=== PATIENT | female | born 1985 | race Caucasian/White ===

== ENCOUNTER → 2019-05-10 08:43 | Outpatient (CLI) | payer OTHER, SELFPAY ==
[2019-05-10 10:00] LABS: Alanine Aminotransferase 16 IU/L (9-52); Albumin 4.1 g/dL (3.5-5.0); Albumin Globulin Ratio 1.5 (1.0-2.8); Alkaline Phosphatase 60 U/L (38-126); Aspartate Aminotransferase 19 IU/L (14-36); BUN Creatinine Ratio 18.6 (6-22); Bilirubin Total 0.5 mg/dL (0.2-1.3); Blood Urea Nitrogen 13 mg/dL (7-17); Calcium 9.1 mg/dL (8.4-10.2); Carbon Dioxide 26 mmol/L (22-32); Chloride 106 mmol/L (98-107); Estimated Glomerular Filt Rate > 60.0 mL/min (>60); Globulin 2.7 g/dL (1.7-4.1); Glucose 95 mg/dL (70-100); HEMOLYSIS < 15 (0-50); Sodium 140 mmol/L (137-145); Total Protein 6.8 g/dL (6.3-8.2)
[2019-05-10 10:04] LABS: Potassium 4.1 mmol/L (3.4-5.1)
[2019-05-10 11:07] LABS: Thyroid Stimulating Hormone 1.12 uIU/mL (0.47-4.68)
[2019-05-16 03:42] LABS: Apolipoprotein B 81 mg/dL (<90); Cholesterol, Total 168 mg/dL (<200); HDL Cholesterol 48 mg/dL (>50); Lipoprotein (a) 187 nmol/L (<75); Non- HDL Cholesterol 120 (<130); Triglycerides 132 mg/dL (<150)
== END ==
PROVIDERS: PCP Physician Assistant; Visit Provider Physician Assistant
DX: R00.2 Palpitations (principal); Z13.220 Encounter for screening for lipoid disorders; Z13.6 Encounter for screening for cardiovascular disorders; Z82.49 Family history of ischemic heart disease and other diseases of the circulatory system
CPT/HCPCS: 36415; 80053; 83695; 84443

== ENCOUNTER 2020-02-21 08:52 | Emergency (ER) | payer OTHER, SELFPAY ==
[2020-02-21 09:05] VITALS: BP 141/91; PULSE 78; RESP 12; TEMP 37.1; O2SAT 98
[2020-02-21] MEDS: SUCRALFATE 1 GM/10 ML ORAL SUSP PO (09:54)
--- NOTE | 2020-02-21 10:16 | DI.US.S_ITS ---
PROCEDURE: US ABDOMEN LIMITED INDICATIONS: EPIGASTRIC AND RUQ TNDERNESS. EVALUATE FOR GALLSTONES TECHNIQUE: Real-time focused scanning was performed of the abdomen, with image documentation. COMPARISON: [facility], CR, XR CHEST 1V, 02/21/2020, 10:29. FINDINGS: No findings of gallstones or sludge are seen. The gallbladder wall is not thickened, measuring 3 mm or less. No specific pericholecystic fluid is seen. The sonographic Dunn sign is negative. There is no biliary dilatation, the common bile duct measures 5 mm. The liver is normal in size and demonstrates no focal lesions. No significant pancreatic abnormality is seen on these images. IMPRESSION: The gallbladder demonstrates a normal sonographic appearance. No biliary dilatation is seen. Dictated by: Nba Silveira M.D. on 02/21/2020 at 10:00 Approved by: Nba Silveira M.D. on 02/21/2020 at 10:01
--- NOTE | 2020-02-21 10:18 | DI.RAD.S_ITS ---
PROCEDURE: XR CHEST 1V INDICATIONS: central substernal burning pain TECHNIQUE: One view of the chest was acquired. COMPARISON: None. FINDINGS: Surgical changes and devices: None. Lungs and pleura: Lungs are clear. No pleural effusions or pneumothorax. Mediastinum: Mediastinal contours appear normal. Heart size is normal. Bones and chest wall: No suspicious bony lesions. Overlying soft tissues appear unremarkable. IMPRESSION: Portable chest within normal limits. Dictated by: Nba Silveira M.D. on 02/21/2020 at 9:42 Approved by: Nba Silveira M.D. on 02/21/2020 at 9:42
[2020-02-21 10:22] LABS: Add Manual Diff / Slide Review NO; Basophils Absolute Auto 0 /uL (0-100); Basophils Percent Auto 0.6 % (0-2); Eosinophils Absolute Auto 100 /uL (0-450); Eosinophils Percent Auto 0.9 % (2-4); Hematocrit 40.4 % (36-46); Hemoglobin 14.1 g/dL (12.0-16.0); Lymphocytes Absolute Auto 2000 /uL (1100-4500); Mean Corpuscular HGB Conc 34.8 % (30-36); Mean Corpuscular Hemoglobin 32.3 PG (26-34); Mean Corpuscular Volume 92.8 fL (80-100); Monocytes Absolute Auto 600 /uL (0-900); Monocytes Percent Auto 8.3 % (3-14); Neutrophils Absolute Auto 4000 /uL (1500-7000); Neutrophils Percent Auto 60.2 % (50-75); Platelet Count 189 X10^3/uL (150-400); Red Blood Cell Count 4.35 X10^6/uL (4.0-5.2); Red Cell Distribution Width 12.7 % (11.6-14.8); White Blood Cell Count 6.6 X10^3/uL (4.5-11.0)
[2020-02-21 10:35] LABS: Lipase 48 U/L (23-300)
[2020-02-21 10:37] LABS: Alanine Aminotransferase 14 IU/L (<35); Albumin 4.1 g/dL (3.5-5.0); Albumin Globulin Ratio 1.4 (1.0-2.8); Alkaline Phosphatase 61 U/L (38-126); Aspartate Aminotransferase 21 IU/L (14-36); BUN Creatinine Ratio 17.9 (6-22); Bilirubin Total 0.5 mg/dL (0.2-1.3); Blood Urea Nitrogen 12 mg/dL (7-17); Calcium 9.1 mg/dL (8.4-10.2); Carbon Dioxide 23 mmol/L (22-32); Chloride 108 mmol/L (98-107); Estimated Glomerular Filt Rate > 60.0 mL/min (>60); Globulin 2.9 g/dL (1.7-4.1); Glucose 100 mg/dL (70-100); HEMOLYSIS < 15 (0-50); Potassium 4.2 mmol/L (3.4-5.1); Sodium 139 mmol/L (137-145)
[2020-02-21] MEDS: PANTOPRAZOLE 20 MG TABLET 40 MG PO (10:41)
[2020-02-21] MEDS: MAG HYDROX/ALUMINUM/SIMETH SUS 20 ML, LIDOCAINE VISCOUS 2% 15 ML PO (10:42)
[2020-02-21 12:13] VITALS: BP 135/76; PULSE 69; RESP 17; O2SAT 97
--- NOTE | 2020-02-21 18:33 | ED_ITS ---
HPI - Abdominal Pain General Chief Complaint: Abdominal Pain Stated Complaint: Ulcer Time Seen by Provider: 02/21/20 09:34 Source: patient Mode of arrival: Ambulatory Limitations: no limitations History of Present Illness HPI narrative: CC: epigastric pain HPI: The patient is a 34-year-old female who initially presented with an acute panic attack which calmed down with breathing exercise. The patient's primary c oncern is that she developed epigastric and central substernal burning pain and discomfort. She complained of severe indigestion and heartburn and bubbles in her upper abdomen lower chest. She denies a history of ever being told that she had peptic ulcer disease or GERD. She has had trouble with indigestion and heartburn frequently since her last . Her last was in 2018. She denies a history of gastritis or pancreatitis or having her gallbladder removed. She states that her mother had gallstones in her gallbladder was removed. Her last menstrual period was in the 29 of January. She has been taking Tagamet Pepcid and Rolaids with partial relief from both of them but not completely from all of them. She states that she develops most of her pain and discomfort immediately after eating. She has been having increasing burping and belching and eructation. She admits to smoking cigarettes and smoking marijuana does not drink alcohol. She denies a history of pancreatitis diabetes mellitus hypertension and asthma. Related Data Previous Rx's Medication Instructions Recorded pantoprazole [Protonix] 40 mg PO DAILY #20 tab 02/21/20 sucralfate [Carafate] 10 ml PO QID PRN #420 ml 02/21/20 Allergies Allergy/AdvReac Type Severity Reaction Status Date / Time Penicillins Allergy Severe Anaphylaxis Verified 02/21/20 10:05 buspirone AdvReac Intermediate Nausea, Verified 02/21/20 09:49 shakey, dizziness, headaches, numbness in hands Review of Systems Review of Systems Narrative: REVIEW OF SYSTEMS: CONSTITUTIONAL: She denies any fever chills or sweats. NEUROLOGICAL: She has had intermittent mild headaches but no numbness tingling paresthesias anesthesia is paresis or paralysis. She has had no seizure disorder. EENT: She denies any loss of vision diplopia sore throat dysphagia. CARDIO-PULMONARY: She has had the burning substernal central chest pain without any radiation. She has had no significant shortness of breath cough palpi tations or dizziness. HEMOTOLOGICAL: She denies any bleeding abnormalities or bruising. GASTROINTESTINAL: She has had the abdominal pain as noted with nausea vomiting indigestion heartburn she denies any hematemesis coffee-ground emesis melena hematochezia. Bowel movements have been normal and she has had no diarrhea. GENITAL URINARY: She denies any urinary symptoms. MUSCULOSKELETAL/ RHEUMATOLOGICAL: She denies any significant back pain. Patient History Medical History Chicken pox (Resolved) History of live (Resolved ~11/12/17) Family History Mother History of heart attack History of heart disease Hyperlipidemia Hypertension Fatty liver Brother Anxiety History of bipolar disorder History of heart disease Hyperlipidemia Mental health problem Fatty liver Sister Anxiety Depression Mental health problem Grandfather Hwang's syndrome Grandmother Cancer Social History Smoking Status: Current every day smoker Tobacco: How many years used: 20 (off and on) quit status: considering quitting (that's one of the things I am here for today.) second hand exposure: Yes (my also smokes.) alcohol intake: former (I quit a year ago (as of 05/06/19). Before then it was very rare) substance use type: marijuana (I smoke and eat marijuana about 3 to 4 times a week.) Smoking Status: Current every day smoker alcohol intake frequency: 0-2 drinks per day Substance Use Type: does not use Exam Narrative Exam Narrative: PHYSICAL EXAM: CONSTITUTIONAL: Awake, Alert, Oriented, Coherent, Cooperative in NAD at the time that I am evaluating the patient HEAD: AT/NC EENT: PERRL, FROM of eyes, no discharge, no nystagmus MOUTH:Oral mucosa is moist and pink, posterior pharynx is without erythema or exudate. NECK: Supple, no obvious JVD, Trachea is midline without stridor, no palpable LN. SPINE: Palpationof the cervical, Thoracic, Lumbar or Sacral spine reveals no gross deformity or tenderness. No CVA tenderness. THORAX: No deformity, retractions, chest wall tenderness. LUNGS: Clear, symmetrical breath sounds without respiratory distress. HEART: Normal heart tones, regular rhythm and rate without murmur. ABDOMEN: Patient is tender in her epigastrium without guarding rebound or rigidity. She has mild tenderness in the right upper quadrant. LYMPHATIC: no palpable spleen. EXTREMITIES: No edema, deformity, tenderness . SKIN: No rash, bruising, petechiae or purpura. NEURO: Awake, alert, oriented, conversive, cranial nerves II-XII are symmetrical , moves all 4 extremities and is ambulatory. Initial Vital Signs Initial Vital Signs: Vital Signs Temperature 98.7 F 02/21/20 09:05 Pulse Rate 78 02/21/20 09:05 Respiratory Rate 12 02/21/20 09:05 Blood Pressure 141/91 H 02/21/20 09:05 Pulse Oximetry 98 02/21/20 09:05 Course Course Course Narrative: Patient was significantly improved after she was administered the Carafate, GI cocktail and pantoprazole. The patient was then discharged home. Her ultrasound of the gallbladder revealed no evidence of gallstones or acute cholecystitis. Chest x-ray revealed no cardiopulmonary pathology. Orders Ordered: ED Orders 02/21/20 10:02 Complete Blood Count AUTO DIFF Stat Comprehensive Metabolic Panel Stat Lipase Stat 02/21/20 10:16 US abdomen limited Stat 02/21/20 10:18 XR chest 1V Stat Discontinued Medications Al Hydrox/Mg Hydrox/Simethicone 20 ml/ Lidocaine HCl 15 ml 0 ml PO NOW ONE Stop: 02/21/20 09:36 Last Admin: 02/21/20 10:42 Dose: 35 ml Documented by: RSTONE Pantoprazole Sodium (Protonix) 40 mg PO NOW ONE Stop: 02/21/20 09:36 Last Admin: 02/21/20 10:41 Dose: 40 mg Documented by: YAHIRTONE Sucralfate (Carafate) 1 gm PO ACHS LATONIA Sucralfate (Carafate) 1 gm PO NOW ONE Stop: 02/21/20 09:44 Last Admin: 02/21/20 09:54 Dose: 1 gm Documented by: MANISHA Vital Signs Vital signs: Vital Signs - 8 hr 02/21/20 12:13 Pulse Rate 69 Respiratory Rate 17 Blood Pressure [Right Arm] 135/76 Pulse Oximetry 97 MDM - Abdominal Pain Medical Records Attestation: I reviewed the patient's medical records. Lab Data Attestation: I reviewed the patient's lab results. Result diagrams: 02/21/20 10:02 02/21/20 10:02 Labs: Lab Results 02/21/20 02/21/20 02/21/20 Range/Units 10:02 10:02 10:02 WBC 6.6 (4.5-11.0) X10^3/uL RBC 4.35 (4.0-5.2) X10^6/uL Hgb 14.1 (12.0-16.0) g/dL Hct 40.4 (36-46) % MCV 92.8 (80-100) fL MCH 32.3 (26-34) PG MCHC 34.8 (30-36) % RDW 12.7 (11.6-14.8) % Plt Count 189 (150-400) X10^3/uL Neut % (Auto) 60.2 (50-75) % Lymph % (Auto) 30.0 (25-40) % [place] % (Auto) 8.3 (3-14) % Eos % (Auto) 0.9 L (2-4) % Baso % (Auto) 0.6 (0-2) % Neut # (Auto) 4000 (1091-1914) /uL Lymph # (Auto) 2000 (8951-7631) /uL [place] # (Auto) 600 (0-900) /uL Eos # (Auto) 100 (0-450) /uL Baso # (Auto) 0 (0-100) /uL Sodium 139 (137-145) mmol/L Potassium 4.2 (3.4-5.1) mmol/L Chloride 108 H (98-107) mmol/L Carbon Dioxide 23 (22-32) mmol/L BUN 12 (7-17) mg/dL Creatinine 0.67 (0.52-1.04) mg/dL Estimated GFR > 60.0 (>60) mL/min BUN/Creatinine Ratio 17.9 (6-22) Glucose 100 (70-100) mg/dL Calcium 9.1 (8.4-10.2) mg/dL Total Bilirubin 0.5 (0.2-1.3) mg/dL AST 21 (14-36) IU/L ALT 14 (<35) IU/L Alkaline Phosphatase 61 (38-126) U/L Total Protein 7.0 (6.3-8.2) g/dL Albumin 4.1 (3.5-5.0) g/dL Globulin 2.9 (1.7-4.1) g/dL Albumin/Globulin Ratio 1.4 (1.0-2.8) Lipase 48 (23-300) U/L Point of care testing: Point of Care Testing Test Results Negative Urine Dip Bedside Urine Glucose Negative Bedside Urine Bilirubin - Negative Bedside Urine Ketone - Negative Urine Specific [place] 1.020 Bedside Urine Occult Blood - Negative Bedside Urine pH 6.0 Bedside Urine Protein +/- 15 Bedside Urine Urobilinogen - Negative Bedside Urine Nitrite - Negative Bedside Urine Leukocytes - Negative Esterase Discharge Plan Departure Patient Disposition: Home Clinical Impression: Panic disorder, Anxiety Gastritis Qualifiers: Gastritis type: unspecified gastritis Chronicity: acute Gastritis bleeding: without bleeding Qualified Code(s): K29.00 - Acute gastritis without bleeding Gastroesophageal reflux disease Qualifiers: Esophagitis presence: with esophagitis Qualified Code(s): K21.0 - Gastro- esophageal reflux disease with esophagitis Discharge Date/Time: 02/21/20 12:20 Instructions: Anxiety Disorders, Anxiety and Panic Attacks (Alternative Therapy), DI for Gastroesophageal Reflux Disease (GERD), DI for Dyspepsia Activity Restrictions/Additional Instructions: 1. Your tests indicate that you have acute gastritis/gastroesophageal reflux disease. 2. You need to follow-up with your primary care physician because of this does not improve you may need to be referred to a blueprint processor for an upper endoscopic exam. 3. Take the Carafate 1 g oral suspension up to 4 times a day as needed for severe indigestion and heartburn. Take it on an empty stomach before taking any antacid. 4. If you are still having discomfort after taking the care if a 20-30 minutes later take 2-3 tbsp of a liquid antacid such as Gaviscon to neutralize the acid in her stomach. 5. Take the pantoprazole 40 mg per day for the next 20 days. 6. If you develop worsening pain fever passing out you need to return to the emergency department. Prescriptions: New pantoprazole [Protonix] 40 mg tablet,delayed release (DR/EC) 40 mg PO DAILY Qty: 20 RF: 0 sucralfate [Carafate] 100 mg/mL suspension 10 ml PO QID PRN (Reason: indigestion ) Qty: 420 RF: 0 Referrals: Brandy De Anda PA-C [Primary Care Provider] -
== END 2020-02-21 12:20 | disposition home or self-care (01) ==
PROVIDERS: Emergency Provider Emergency Medicine; PCP Physician Assistant
DX: K29.00 Acute gastritis without bleeding (principal); K21.0 Gastro-esophageal reflux disease with esophagitis; F41.0 Panic disorder [episodic paroxysmal anxiety]
CPT/HCPCS: 36415; 71045; 76705; 80053; 81003; 81025; 83690; 85025; 99284

== ENCOUNTER → 2020-12-13 12:43 | Outpatient (CLI) | payer OTHER, SELFPAY ==
--- NOTE | 2020-12-13 | DI.MG.S_ITS ---
BILATERAL DIGITAL DIAGNOSTIC MAMMOGRAM 3D/2D: 12/13/2020 CLINICAL: Left breast lump and pain. Baseline exam. No prior exams were available for comparison. The tissue of both breasts is heterogeneously dense. This may lower the sensitivity of mammography. There is a 1.3 cm irregular equal density focal asymmetry with an indistinct and circumscribed margin in the left breast at 1 o'clock middle depth. This is seen in additional views. This correlates as palpated. Incidental note made of a 1.1 cm round asymmetry with an indistinct and circumscribed margin in the right breast at 9 o'clock in the retroareolar region. No other significant masses or calcifications are seen in either breast. IMPRESSION: INCOMPLETE: NEEDS ADDITIONAL IMAGING EVALUATION The 1.3 cm irregular equal density focal asymmetry in the left breast at 1 o'clock middle depth most likely is a cyst, clustered cysts, or a fibroadenoma and is indeterminate. An ultrasound is recommended. This was performed immediately following this exam. The 1.1 cm round asymmetry in the right breast at 9 o'clock in the retroareolar region is indeterminate. An ultrasound is recommended. This was performed immediately following this exam. This exam was interpreted at Station ID: [id number]. NOTE: For mammograms, a report in lay terms will be sent to the patient. Approximately 15% of breast malignancies will not be visualized mammographically. In the management of a palpable breast mass, a negative mammogram must not discourage biopsy of a clinically suspicious lesion. Electronically Signed By: Carmelina ayers/:12/13/2020 14:02:40 ACR BI-RADS Category 0: Incomplete [id number]
--- NOTE | 2020-12-13 12:44 | DI.US.S_ITS ---
LIMITED ULTRASOUND OF LEFT BREAST: 12/13/2020 CLINICAL: Palpable left breast lump and focal pain. Comparison is made to exam dated: 12/13/2020 [facility]. Color flow and real-time ultrasound of the left breast 2 o'clock region were performed. Randolph scale images of the real-time examination were reviewed. There is a 1.8 cm x 1.6 cm x 0.9 cm irregular shaped, but smooth walled cyst in the left breast at 2 o'clock anterior depth 3 cm from the nipple. This cyst is anechoic. This correlates as palpated and with mammography findings. Color flow imaging demonstrates that there is no vascularity present. IMPRESSION: BENIGN There is no sonographic evidence of malignancy. The 1.8 cm cyst in the left breast corresponds to the palpable abnormality, is consistent with a simple cyst and is benign. Screening mammography beginning at age 40 is recommended. Findings and recommendations were conveyed to the patient at time of exam. This exam was interpreted at Station ID: [id number]. Electronically Signed By: Carmelina ayers/:12/13/2020 14:51:49 letter sent: Normal Exam Ultrasound BI-RADS: 2 Benign
--- NOTE | 2020-12-13 14:38 | DI.US.S_ITS ---
ULTRASOUND OF RIGHT BREAST: 12/13/2020 CLINICAL: Patient returns today to evaluate a focal asymmetry in the right breast. [facility] and real-time ultrasound of the right breast were performed. Randolph scale images of the real-time examination were reviewed. There is a 1.3 cm x 1.4 cm x 0.9 cm oval cyst with a finely septated internal wall in the right breast at 9 o'clock anterior depth 1 cm from the nipple. This oval cyst is otherwise anechoic. This correlates with mammography findings. Color flow imaging demonstrates that there is no vascularity present. IMPRESSION: PROBABLY BENIGN The 1.4 cm cyst in the right breast is consistent with a minimally complicated cyst and is probably benign. A follow-up right ultrasound in 6 months is recommended to demonstrate stability. Findings and recommendations were conveyed to the patient at time of exam. This exam was interpreted at Station ID: [id number]. Electronically Signed By: Carmelina ayers/:12/13/2020 14:53:39 letter sent: Followup Recommended Ultrasound BI-RADS: 3 Probably benign
== END ==
PROVIDERS: PCP Family Medicine; Referring Provider Registered Nurse; Visit Provider Registered Nurse
DX: R92.8 Other abnormal and inconclusive findings on diagnostic imaging of breast (principal); N60.02 Solitary cyst of left breast; N60.01 Solitary cyst of right breast; N64.4 Mastodynia
CPT/HCPCS: 76642; 77066; G0279

== ENCOUNTER 2021-05-10 17:39 | Emergency (ER) | payer OTHER, SELFPAY ==
[2021-05-10] VITALS (7 sets, daily range): BP systolic 116–136; BP diastolic 73–85; PULSE 63–87; RESP 12–21; TEMP 36.7; O2SAT 95–99; BMI 30.6
[2021-05-10 18:20] LABS: Add Manual Diff / Slide Review NO; Basophils Absolute Auto 0 /uL (0-100); Basophils Percent Auto 0.4 % (0-2); Eosinophils Absolute Auto 100 /uL (0-450); Eosinophils Percent Auto 1.1 % (2-4); Hematocrit 38.9 % (36-46); Hemoglobin 13.3 g/dL (12.0-16.0); Lymphocytes Absolute Auto 3100 /uL (1100-4500); Lymphocytes Percent Auto 35.6 % (25-40); Mean Corpuscular HGB Conc 34.3 % (30-36); Mean Corpuscular Hemoglobin 32.3 PG (26-34); Monocytes Absolute Auto 700 /uL (0-900); Monocytes Percent Auto 8.5 % (3-14); Neutrophils Absolute Auto 4700 /uL (1500-7000); Neutrophils Percent Auto 54.4 % (50-75); Platelet Count 207 X10^3/uL (150-400); Red Blood Cell Count 4.14 X10^6/uL (4.0-5.2); White Blood Cell Count 8.7 X10^3/uL (4.5-11.0)
[2021-05-10 18:27] LABS: Alanine Aminotransferase 16 IU/L (<35); Albumin 3.9 g/dL (3.5-5.0); Albumin Globulin Ratio 1.4 (1.0-2.8); Alkaline Phosphatase 59 U/L (38-126); Aspartate Aminotransferase 23 IU/L (14-36); BUN Creatinine Ratio 13.1 (6-22); Bilirubin Total 0.3 mg/dL (0.2-1.3); Blood Urea Nitrogen 8 mg/dL (7-17); Carbon Dioxide 28 mmol/L (22-32); Chloride 105 mmol/L (98-107); Estimated Glomerular Filt Rate > 60.0 mL/min (>60); Globulin 2.7 g/dL (1.7-4.1); Glucose 84 mg/dL (70-100); HEMOLYSIS < 15 (0-50); Lipase 48 U/L (23-300); Potassium 3.9 mmol/L (3.4-5.1); Sodium 138 mmol/L (137-145); Total Protein 6.6 g/dL (6.3-8.2)
[2021-05-10 18:43] LABS: HCG Quantitative /Beta subunit < 2.4 mIU/mL
[2021-05-10 20:12] LABS: RBC Urine None Seen (0-5/HPF)
[2021-05-10 20:20] LABS: Appearance Urine UA CLEAR; Bilirubin Urine UA NEGATIVE (NEGATIVE); Color Urine UA YELLOW; Glucose Urine UA NEGATIVE (Negative); Ketones Urine UA NEGATIVE (NEGATIVE); Leukocyte Esterase Urine UA NEGATIVE (NEGATIVE); Nitrite Urine UA NEGATIVE (Negative); Occult Blood Urine UA NEGATIVE (Negative); Protein Urine UA NEGATIVE (Negative); Specific Gravity Urine UA 1.015 (1.000-1.035); Urobilinogen Urine UA 0.2 E.U./dL (0.2)
[2021-05-10 20:22] LABS: pH Urine UA 6.5 (4.5-8.0)
[2021-05-10 20:28] LABS: Amorphous Sediment Urine 1+; Bacteria Urine Few (2-10); Culture Indicated Urine Cult Not Indicated; Mucus Urine 2+ (Negative); Squamous Epithelial Cell Urine 1-5 /HPF (0-5/HPF); WBC Urine 0-1/HPF (0-5/HPF)
--- NOTE | 2021-05-10 22:12 | ED_ITS ---
HPI - Abdominal Pain General Chief Complaint: Abdominal Pain Stated Complaint: lower abd pain, legs going numb Time Seen by Provider: 05/10/21 18:03 Source: patient Mode of arrival: Ambulatory Limitations: no limitations History of Present Illness HPI narrative: 35-year-old female daily smoker with history of insomnia, anxiety presents with a friend in the chief complaint of the sensation of abdominal twitching over much of the day. She states that when she feels this twitching her legs get hot. She denies any fever or chills. She denies abdominal pain, nausea or vomiting. She is not dizzy nor weak or lightheaded. She denies any recent trauma or injury. She denies constipation or diarrhea. She denies dysuria, frequency or urgency. She denies any loss of control of bowel or bladder, numbness or tingling in her groin, or lower extremity numbness, tingling or weakness. She denies any trauma and does not use blood thinners. She denies any dietary change or new medications Related Data Previous Rx's Medication Instructions Recorded sucralfate 100 mg/mL oral 10 ml PO QID PRN #420 ml 02/21/20 suspension (Carafate) clonazepam 1 mg tablet See Rx Instructions .ROUTE 01/25/21 .COMPLEX #14 tab hydroxyzine HCl 10 mg tablet See Rx Instructions .ROUTE 02/10/21 .COMPLEX #60 tab trazodone 50 mg tablet See Rx Instructions PO BEDTIME PRN 03/18/21 #60 tab escitalopram oxalate 10 mg tablet See Rx Instructions .ROUTE 05/02/21 .COMPLEX #90 tab Allergies Allergy/AdvReac Type Severity Reaction Status Date / Time Penicillins Allergy Severe Anaphylaxis Verified 03/18/21 11:37 buspirone AdvReac Intermediate Nausea, Verified 03/18/21 11:37 shakey, dizziness, headaches, numbness in hands Citalopram Analogues AdvReac Mild flat affect Verified 03/18/21 11:37 Review of Systems Review of Systems Narrative: GENERAL: Denies chills, fatigue, malaise, fever, sweats. HEENT: Denies sinus pain, ear pain, sore throat, difficulty swallowing, dizziness. RESPIRATORY: Denies dyspnea, cough, wheezing, hemoptysis, sputum. CARDIOVASCULAR: Denies chest pain, palpitations, orthopnea, edema, GASTROINTESTINAL: See HPI : Denies dysuria, frequency, incontinence, hematuria, urinary retention. MUSCULOSKELETAL: denies weakness, joint pain, or bony pain SKIN: Denies rash, skin lesions, or other NEUROLOGIC: Denies weakness, headache, numbness, change in speech, confusion, seizures, incoordination. PSYCHIATRIC: No concerning psychosocial issues. 12 point review of systems is negative except for those stated above Patient History Medical History Body posture problem Caffeine abuse Cervical somatic dysfunction Chicken pox Chronic back pain Chronic neck pain Chronic tension headaches Cranial somatic dysfunction Crepitus of left TMJ on opening of jaw Elevated lipoprotein A level Family history of cardiovascular disease Generalized anxiety disorder with panic attacks Generalized pruritus Guyon syndrome History of live (~11/12/17) Insomnia disorder with non-sleep disorder mental comorbidity Lumbar region somatic dysfunction Musculoskeletal disorder involving masseter Panic disorder Pelvic somatic dysfunction Sacral region somatic dysfunction Segmental and somatic dysfunction of abdomen and other regions Segmental and somatic dysfunction of rib cage Stressful life event affecting family Thoracic region somatic dysfunction Family History Mother History of heart attack History of heart disease Hyperlipidemia Hypertension Fatty liver Brother Anxiety History of bipolar disorder History of heart disease Hyperlipidemia Mental health problem Fatty liver Sister Anxiety Depression Mental health problem Grandfather Hwang's syndrome Grandmother Cancer Social History Smoking Status: Current every day smoker Tobacco: How many years used: 20 quit status: considering quitting second hand exposure: Yes (my also smokes.) alcohol intake: former substance use type: marijuana Smoking Status: Current every day smoker alcohol intake frequency: 0-2 drinks per day Substance Use Type: does not use Exam Narrative Exam Narrative: GENERAL: [35] year old patient appears stated age. Well- developed patient, in mild distress. Anxious, pacing in her room HEAD: Atraumatic. Normocephalic. EYES: Pupils equal round and reactive. Extraocular motions intact. No scleral icterus. No injection or drainage. ENT: Nose without bleeding, purulent drainage. Throat without erythema, tonsillar hypertrophy or exudate. Airway patent. NECK: Trachea midline. Non tender CARDIOVASCULAR: Regular rate and rhythm without murmurs, gallops, or rubs. RESPIRATORY: Clear to auscultation. Breath sounds equal bilaterally. No wheezes, rales, or rhonchi. GASTROINTESTINAL: Abdomen soft, non-tender, nondistended. EXTREMITIES: No edema or joint tenderness. BACK: Nontender without deformity or crepitance. No flank tenderness. Bilateral lower extremity patellar reflexes intact, 2+, sensation intact, no saddle anesthesia, 5/5 strength bilateral lower extremities NEURO: AOx3. SKIN: No rash or erythema of visible areas Initial Vital Signs Initial Vital Signs: Vital Signs Temperature 98.1 F 05/10/21 18:16 Pulse Rate 75 05/10/21 18:16 Respiratory Rate 18 05/10/21 18:16 Blood Pressure 128/79 05/10/21 18:16 Pulse Oximetry 97 05/10/21 18:16 Course Orders Ordered: ED Orders 05/10/21 20:06 Urinalysis and Microscopic Stat Vital Signs Vital signs: Vital Signs - 8 hr 05/10/21 20:06 05/10/21 20:08 05/10/21 20:30 Pulse Rate 69 66 63 Respiratory Rate 16 12 15 Blood Pressure 116/73 Pulse Oximetry 97 95 05/10/21 21:00 05/10/21 21:30 05/10/21 22:19 Pulse Rate 63 66 87 Respiratory Rate 21 Blood Pressure 136/85 Pulse Oximetry 97 99 MDM - Abdominal Pain Lab Data Result diagrams: 05/10/21 18:06 05/10/21 18:06 Labs: Lab Results 05/10/21 05/10/21 05/10/21 Range/Units 18:06 18:06 18:06 WBC 8.7 (4.5-11.0) X10^3/uL RBC 4.14 (4.0-5.2) X10^6/uL Hgb 13.3 (12.0-16.0) g/dL Hct 38.9 (36-46) % MCV 94.0 (80-100) fL MCH 32.3 (26-34) PG MCHC 34.3 (30-36) % RDW 13.0 (11.6-14.8) % Plt Count 207 (150-400) X10^3/uL Neut % (Auto) 54.4 (50-75) % Lymph % (Auto) 35.6 (25-40) % [place] % (Auto) 8.5 (3-14) % Eos % (Auto) 1.1 L (2-4) % Baso % (Auto) 0.4 (0-2) % Neut # (Auto) 4700 (9444-1867) /uL Lymph # (Auto) 3100 (8536-5416) /uL [place] # (Auto) 700 (0-900) /uL Eos # (Auto) 100 (0-450) /uL Baso # (Auto) 0 (0-100) /uL Sodium 138 (137-145) mmol/L Potassium 3.9 (3.4-5.1) mmol/L Chloride 105 (98-107) mmol/L Carbon Dioxide 28 (22-32) mmol/L BUN 8 (7-17) mg/dL Creatinine 0.61 (0.52-1.04) mg/dL Estimated GFR > 60.0 (>60) mL/min BUN/Creatinine Ratio 13.1 (6-22) Glucose 84 (70-100) mg/dL Calcium 9.0 (8.4-10.2) mg/dL Total Bilirubin 0.3 (0.2-1.3) mg/dL AST 23 (14-36) IU/L ALT 16 (<35) IU/L Alkaline Phosphatase 59 (38-126) U/L Total Protein 6.6 (6.3-8.2) g/dL Albumin 3.9 (3.5-5.0) g/dL Globulin 2.7 (1.7-4.1) g/dL Albumin/Globulin Ratio 1.4 (1.0-2.8) Lipase 48 (23-300) U/L HCG, Quant < 2.4 mIU/mL Urine Color Urine Appearance Urine pH (4.5-8.0) Ur Specific [place] (1.000-1.035) Urine Protein (Negative) Urine Glucose (UA) (Negative) g/dL Urine Ketones (NEGATIVE) Urine Occult Blood (Negative) Urine Nitrate (Negative) Urine Bilirubin (NEGATIVE) Urine Urobilinogen (0.2) E.U./dL Ur Leukocyte Esterase (NEGATIVE) Urine RBC (0-5/HPF) Urine WBC (0-5/HPF) Ur Squamous Epith Cells (0-5/HPF) Amorphous Sediment Urine Bacteria (None) Urine Mucus (Negative) Ur Culture Indicated? 05/10/21 Range/Units 20:06 WBC (4.5-11.0) X10^3/uL RBC (4.0-5.2) X10^6/uL Hgb (12.0-16.0) g/dL Hct (36-46) % MCV (80-100) fL MCH (26-34) PG MCHC (30-36) % RDW (11.6-14.8) % Plt Count (150-400) X10^3/uL Neut % (Auto) (50-75) % Lymph % (Auto) (25-40) % [place] % (Auto) (3-14) % Eos % (Auto) (2-4) % Baso % (Auto) (0-2) % Neut # (Auto) (6919-8655) /uL Lymph # (Auto) (0052-7126) /uL [place] # (Auto) (0-900) /uL Eos # (Auto) (0-450) /uL Baso # (Auto) (0-100) /uL Sodium (137-145) mmol/L Potassium (3.4-5.1) mmol/L Chloride (98-107) mmol/L Carbon Dioxide (22-32) mmol/L BUN (7-17) mg/dL Creatinine (0.52-1.04) mg/dL Estimated GFR (>60) mL/min BUN/Creatinine Ratio (6-22) Glucose (70-100) mg/dL Calcium (8.4-10.2) mg/dL Total Bilirubin (0.2-1.3) mg/dL AST (14-36) IU/L ALT (<35) IU/L Alkaline Phosphatase (38-126) U/L Total Protein (6.3-8.2) g/dL Albumin (3.5-5.0) g/dL Globulin (1.7-4.1) g/dL Albumin/Globulin Ratio (1.0-2.8) Lipase (23-300) U/L HCG, Quant mIU/mL Urine Color Yellow Urine Appearance Clear Urine pH 6.5 (4.5-8.0) Ur Specific [place] 1.015 (1.000-1.035) Urine Protein Negative (Negative) Urine Glucose (UA) Negative (Negative) g/dL Urine Ketones Negative (NEGATIVE) Urine Occult Blood Negative (Negative) Urine Nitrate Negative (Negative) Urine Bilirubin Negative (NEGATIVE) Urine Urobilinogen 0.2 (0.2) E.U./dL Ur Leukocyte Esterase Negative (NEGATIVE) Urine RBC None seen (0-5/HPF) Urine WBC 0-1/hpf (0-5/HPF) Ur Squamous Epith Cells 1-5 /hpf (0-5/HPF) Amorphous Sediment 1+ Urine Bacteria Few (2-10) H (None) Urine Mucus 2+ H (Negative) Ur Culture Indicated? Cult not indicated MDM Narrative Medical decision making narrative: Multiple etiologies for patient's symptoms considered including: [Electrolyte abnormality versus bowel obstruction versus other] Patient's symptoms improved over duration of stay with above-stated therapies. We did discuss the potential of doing imaging but given atypical symptoms, lack of pain, normal blood work we elected to hold off for now Findings and discharge diagnosis discussed with patient/family followed by verbalization of understanding Return precautions discussed with patient/family whom verbalize understanding. Discharge Plan Departure Patient Disposition: Home Clinical Impression: Abdominal cramping Instructions: DI for Numbness/Tingling Activity Restrictions/Additional Instructions: *You have been diagnosed with [abdominal twitching and lower extremity paresthesias] *What to do: *Please continue to take your regular medications as directed. [ ] New medication prescriptions sent to your pharmacy: [ ] [ ] New medication written as a paper prescription [x ] No new medications given *Please follow up with your primary care provider in 2-3 days, call for an appointment. Let them know you were seen in the Emergency Department and that we ask that you be seen in follow up. We will electronically transmit a record of today's note if your PCP is in our system *If you do not have a primary care provider please contact the [facility] Resource line at [phone]. They will ask some questions about your medical history and help get you set up with a doctor in the community. *Return to Emergency Department if you should have any new, worsening or concerning symptoms, such as [fever greater than 101 F, shaking chills, worsening pain, persistent vomiting or other bothersome symptoms] Prescriptions: No Action clonazepam 1 mg tablet See Rx Instructions .ROUTE .COMPLEX Qty: 14 RF: 0 hydroxyzine HCl 10 mg tablet See Rx Instructions .ROUTE .COMPLEX Qty: 60 RF: 0 escitalopram oxalate 10 mg tablet See Rx Instructions .ROUTE .COMPLEX Qty: 90 RF: 0 trazodone 50 mg tablet See Rx Instructions PO BEDTIME PRN (Reason: sleep) Qty: 60 RF: 0 sucralfate [Carafate] 100 mg/mL suspension 10 ml PO QID PRN (Reason: indigestion ) Qty: 420 RF: 0 Referrals: Daniel Finley DO [Primary Care Provider] -
== END 2021-05-10 22:20 | disposition home or self-care (01) ==
PROVIDERS: Emergency Provider Emergency Medicine; PCP Family Medicine
DX: R10.9 Unspecified abdominal pain (principal)
CPT/HCPCS: 36415; 80053; 81001; 83690; 84702; 85025; 99283

== ENCOUNTER → 2021-06-14 10:32 | Outpatient (CLI) | payer OTHER, SELFPAY ==
--- NOTE | 2021-06-14 10:33 | DI.US.S_ITS ---
ULTRASOUND OF RIGHT BREAST: 06/14/2021 CLINICAL: 6 month follow-up of cysts. Comparison is made to exams dated: 12/13/2020 ultrasound, [facility]13[facility]2020 [facility] and real-time ultrasound of the right breast were performed. Randolph scale images of the real-time examination were reviewed. There is a 1.2 cm x 1.5 cm x 1 cm oval cyst with smooth, thin septated internal lara in the right breast at 9 o'clock anterior depth 1 cm from the nipple. This oval cyst is anechoic. This abnormality is not significantly changed and correlates with previous mammography findings. Color flow imaging demonstrates that there is no vascularity present. IMPRESSION: PROBABLY BENIGN The 1.2 cm x 1.5 cm x 1 cm oval cyst in the right breast is consistent with a complicated cyst and is probably benign. A follow-up right ultrasound in 6 months is recommended to demonstrate continued stability. Findings and recommendations were conveyed to the patient during today's evaluation. This exam was interpreted at Station ID: [id number]. Electronically Signed By: Sony Palomino M.D. aty/:06/14/2021 11:32:37 letter sent: Followup Recommended Ultrasound BI-RADS: 3 Probably benign
== END ==
PROVIDERS: PCP Family Medicine; Referring Provider Registered Nurse; Visit Provider Registered Nurse
DX: N60.01 Solitary cyst of right breast (principal)
CPT/HCPCS: 76642

== ENCOUNTER → 2021-10-27 10:43 | Outpatient (CLI) | payer OTHER, SELFPAY ==
--- NOTE | 2021-10-27 10:45 | DI.RAD.S_ITS ---
PROCEDURE: XR FINGER RT MIN 2V INDICATIONS: right thumb injury, pain TECHNIQUE: AP hand, 2 views of the right thumb finger(s) acquired. COMPARISON: None. FINDINGS: Bones: No fractures or dislocations. No suspicious bony lesions. Soft tissues: No suspicious soft tissue calcifications. Mild soft tissue edema. IMPRESSION: Soft tissue swelling of the right thumb without underlying fracture or dislocation. If there is persistent clinical concern for occult fracture given adequate mechanism of injury, consider repeat imaging in 10-14 days. Dictated by: Sony Palomino M.D. on 10/27/2021 at 14:39 Approved by: Sony Palomino M.D. on 10/27/2021 at 14:39
== END ==
PROVIDERS: PCP Family Medicine; Referring Provider Registered Nurse; Visit Provider Registered Nurse
DX: S69.91XA Unspecified injury of right wrist, hand and finger(s), initial encounter (principal); X58.XXXA Exposure to other specified factors, initial encounter; M79.89 Other specified soft tissue disorders
CPT/HCPCS: 73140

== ENCOUNTER 2022-04-14 18:34 | Emergency (ER) | payer OTHER, SELFPAY ==
[2022-04-14 18:46] VITALS: BP 148/90; PULSE 79; RESP 18; TEMP 36.9; O2SAT 95; BMI 28.3
[2022-04-14] MEDS: ONDANSETRON 4 MG/2 ML INJ IV (19:08)
[2022-04-14 19:46] LABS: Alanine Aminotransferase 20 IU/L (<35); Albumin 4.4 g/dL (3.5-5.0); Albumin Globulin Ratio 1.4 (1.0-2.8); Alkaline Phosphatase 48 U/L (38-126); Aspartate Aminotransferase 43 IU/L (14-36); BUN Creatinine Ratio 15.4 (6-22); Bilirubin Total 0.9 mg/dL (0.2-1.3); Blood Urea Nitrogen 10 mg/dL (7-17); Carbon Dioxide 26 mmol/L (22-32); Chloride 103 mmol/L (98-107); Estimated Glomerular Filt Rate > 60 mL/min (>60); Globulin 3.1 g/dL (1.7-4.1); Glucose 91 mg/dL (70-100); Lipase 39 U/L (23-300); Sodium 138 mmol/L (137-145); Total Protein 7.5 g/dL (6.3-8.2)
[2022-04-14 19:50] LABS: HEMOLYSIS 162 (0-50); Potassium 5.4 mmol/L (3.4-5.1)
[2022-04-14 19:51] LABS: Add Manual Diff / Slide Review NO; Basophils Absolute Auto 0 /uL (0-100); Basophils Percent Auto 0.6 % (0-2); Eosinophils Absolute Auto 100 /uL (0-450); Eosinophils Percent Auto 1.2 % (2-4); Hematocrit 41.9 % (36-46); Hemoglobin 14.4 g/dL (12.0-16.0); Lymphocytes Absolute Auto 2700 /uL (1100-4500); Lymphocytes Percent Auto 36.2 % (25-40); Mean Corpuscular HGB Conc 34.3 % (30-36); Mean Corpuscular Hemoglobin 31.6 PG (26-34); Mean Corpuscular Volume 92.2 fL (80-100); Monocytes Absolute Auto 700 /uL (0-900); Monocytes Percent Auto 8.7 % (3-14); Neutrophils Absolute Auto 4000 /uL (1500-7000); Neutrophils Percent Auto 53.3 % (50-75); Platelet Count 217 X10^3/uL (150-400); Red Blood Cell Count 4.55 X10^6/uL (4.0-5.2); Red Cell Distribution Width 12.6 % (11.6-14.8); White Blood Cell Count 7.6 X10^3/uL (4.5-11.0)
[2022-04-14 19:54] LABS: COVID19 -Nasal RAPID Negative (Negative)
--- NOTE | 2022-04-14 20:38 | ED_ITS ---
HPI - Nausea/Vomiting/Diarrhea General Chief complaint: Nausea/Vomiting/Diarrhea Stated complaint: Bad reaction to new medication Time Seen by Provider: 04/14/22 19:19 Source: patient Mode of arrival: Wheelchair Limitations: no limitations History of Present Illness HPI Narrative: Patient is a 36-year-old female who is here for evaluation of nausea and vomiting. She is recently started azithromycin and benzoate for bronchitis. She is had 3 days of this medication. Since the onset of taking this medication she is had nausea and vomiting. She is not had any diarrhea. She feels like the respiratory issues for which she was taking the medicine seems to have resolved. No skin rashes. Related Data Previous Rx's Medication Instructions Recorded sucralfate 100 mg/mL oral 10 ml PO QID PRN indigestion #420 02/21/20 suspension (Carafate) mL clonazepam 1 mg tablet See Rx Instructions .Route 01/25/21 .COMPLEX #14 tabs hydroxyzine HCl 10 mg tablet See Rx Instructions .Route 02/10/21 .COMPLEX #60 tabs trazodone 50 mg tablet See Rx Instructions PO BEDTIME PRN 03/18/21 sleep #60 tabs lidocaine 5 % topical ointment 1 applic topical DAILY PRN pain 01/30/22 #30 grams escitalopram oxalate 10 mg tablet See Rx Instructions .Route 02/03/22 .COMPLEX #90 tabs albuterol sulfate 90 mcg/actuation 2 puff inhalation Q4-6H PRN 04/12/22 aerosol inhaler bronchospasm #8.5 grams azithromycin 250 mg tablet See Rx Instructions PO .COMPLEX #6 04/12/22 tabs benzonatate 100 mg capsule 100 mg PO TID PRN cough #30 caps 04/12/22 Allergies Allergy/AdvReac Type Severity Reaction Status Date / Time Penicillins Allergy Severe Anaphylaxis Verified 04/14/22 18:51 buspirone AdvReac Intermediate Nausea, Verified 04/14/22 18:51 shakey, dizziness, headaches, numbness in hands Citalopram Analogues AdvReac Mild flat affect Verified 04/14/22 18:51 Review of Systems Constitutional Constitutional: Reports system reviewed and no additional complaints, except as documented Cardiovascular Cardiovascular: Reports system reviewed and no additional complaints, except as documented Respiratory Respiratory: Reports system reviewed and no additional complaints, except as documented Gastrointestinal Gastrointestinal: Reports system reviewed and no additional complaints, except as documented Integumentary/Breasts Skin/Breast: Reports system reviewed and no additional complaints, except as documented Hematologic/Lymphatic On Anticoagulants: No Allergic/Immunologic Allergic/Immunologic: Reports system reviewed and no additional complaints, except as documented Patient History Medical History Body posture problem Caffeine abuse Cervical somatic dysfunction Chicken pox Chronic back pain Chronic neck pain Chronic tension headaches Cranial somatic dysfunction Crepitus of left TMJ on opening of jaw Elevated lipoprotein A level Family history of cardiovascular disease Generalized anxiety disorder with panic attacks Generalized pruritus Guyon syndrome History of live (~11/12/17) Injury, thumb Insomnia disorder with non-sleep disorder mental comorbidity Lumbar region somatic dysfunction Musculoskeletal disorder involving masseter Panic disorder Pelvic somatic dysfunction Sacral region somatic dysfunction Segmental and somatic dysfunction of abdomen and other regions Segmental and somatic dysfunction of rib cage Stressful life event affecting family Subungual hematoma Thoracic region somatic dysfunction Well female exam with routine gynecological exam Family History Mother History of heart attack History of heart disease Hyperlipidemia Hypertension Fatty liver Brother Anxiety History of bipolar disorder History of heart disease Hyperlipidemia Mental health problem Fatty liver Sister Anxiety Depression Mental health problem Grandfather Hwang's syndrome Grandmother Cancer Social History Smoking Status: Current every day smoker Tobacco: How many years used: 20 quit status: considering quitting second hand exposure: Yes (my also smokes.) alcohol intake: former substance use type: marijuana Smoking Status: Current every day smoker alcohol intake frequency: 0-2 drinks per day Substance Use Type: does not use Exam Initial Vital Signs Initial Vital Signs: Vital Signs Temperature 98.4 F 04/14/22 18:46 Pulse Rate 79 04/14/22 18:46 Respiratory Rate 18 04/14/22 18:46 Blood Pressure 148/90 H 04/14/22 18:46 Pulse Oximetry 95 04/14/22 18:46 Oxygen Delivery Method 04/14/22 18:46 Const General: cooperative and comfortable HENMT Head: normal to inspection and normocephalic Resp Effort & Inspection: normal respiratory effort Auscultation: clear to auscultation bilaterally Cardio Rate: regular rate Rhythm: regular rhythm Neuro General: patient alert, patient awake and moves all extremities Extrem General: normal to inspection Course Orders Ordered: ED Orders 04/14/22 18:52 EKG-12 Lead Stat 04/14/22 19:05 COVID19 -Nasal RAPID/Pre-Proc Stat Complete Blood Count AUTO DIFF Stat Comprehensive Metabolic Panel Stat Lipase Stat Discontinued Medications Ondansetron HCl (Ondansetron 4 Mg/2 Ml Inj) 4 mg IV NOW ONE Stop: 04/14/22 18:53 Last Admin: 04/14/22 19:08 Dose: 4 mg Documented By: AMU Ondansetron HCl (Ondansetron 4 Mg Odt Prepack) 1 bottle MISC SEEINSTR ONE Stop: 04/14/22 20:40 Vital Signs Vital signs: Vital Signs - 8 hr 04/14/22 18:46 Temperature 98.4 F Pulse Rate 79 Respiratory Rate 18 Blood Pressure 148/90 H Pulse Oximetry 95 Oxygen Delivery Method Room Air MDM - Nausea/Vomiting/Diarrhea Lab Data Attestation: I reviewed the patient's lab results. Result diagrams: 04/14/22 19:05 04/14/22 19:05 Labs: Lab Results 04/14/22 04/14/22 04/14/22 Range/Units 19:05 19:05 19:05 WBC 7.6 (4.5-11.0) X10^3/uL RBC 4.55 (4.0-5.2) X10^6/uL Hgb 14.4 (12.0-16.0) g/dL Hct 41.9 (36-46) % MCV 92.2 (80-100) fL MCH 31.6 (26-34) PG MCHC 34.3 (30-36) % RDW 12.6 (11.6-14.8) % Plt Count 217 (150-400) X10^3/uL Neut % (Auto) 53.3 (50-75) % Lymph % (Auto) 36.2 (25-40) % [place] % (Auto) 8.7 (3-14) % Eos % (Auto) 1.2 L (2-4) % Baso % (Auto) 0.6 (0-2) % Neut # (Auto) 4000 (7502-3371) /uL Lymph # (Auto) 2700 (3287-0373) /uL [place] # (Auto) 700 (0-900) /uL Eos # (Auto) 100 (0-450) /uL Baso # (Auto) 0 (0-100) /uL Sodium 138 (137-145) mmol/L Potassium 5.4 H (3.4-5.1) mmol/L Chloride 103 (98-107) mmol/L Carbon Dioxide 26 (22-32) mmol/L BUN 10 (7-17) mg/dL Creatinine 0.65 (0.52-1.04) mg/dL Estimated GFR > 60 (>60) mL/min BUN/Creatinine Ratio 15.4 (6-22) Glucose 91 (70-100) mg/dL Calcium 9.0 (8.4-10.2) mg/dL Total Bilirubin 0.9 (0.2-1.3) mg/dL AST 43 H (14-36) IU/L ALT 20 (<35) IU/L Alkaline Phosphatase 48 (38-126) U/L Total Protein 7.5 (6.3-8.2) g/dL Albumin 4.4 (3.5-5.0) g/dL Globulin 3.1 (1.7-4.1) g/dL Albumin/Globulin Ratio 1.4 (1.0-2.8) Lipase 39 (23-300) U/L SARS-CoV-2 (PCR) Negative (Negative) ECG Data Attestation: I personally reviewed and interpreted this ECG as follows: Interpretation: Sinus rhythm Ventricular rate is 70 Normal axis Normal QRS Normal QTC No ST T wave changes MDM Narrative Medical decision making narrative: Symptoms seem to started since starting the azithromycin. I suspect that this is side effect of this medication and not allergic reaction. States she feels better after the medication in the fluids here in the ER. No signs of anaphylaxis. Will have her stop the azithromycin. Will discharge home with nausea medication. She was given return precautions. She expressed understanding and agreement. Discharge Plan Departure Patient Disposition: Home Clinical Impression: Nausea and vomiting, Medication reaction Instructions: Nausea and Vomiting-Adult Activity Restrictions/Additional Instructions: He is them nausea medication as needed. I do recommend that you stop the azithromycin as it is most likely causing your symptoms. Contact your primary d octor for a follow-up. Return to the emergency department for any new or worsening symptoms. Prescriptions: No Action azithromycin 250 mg tablet See Rx Instructions PO .COMPLEX Qty: 6 0RF Rx Instructions: take 500 mg today (day 1), then 250 mg for 4 days (days 2-5) PO benzonatate 100 mg capsule 100 mg PO TID PRN (Reason: cough) Qty: 30 0RF albuterol sulfate 90 mcg/actuation HFA aerosol inhaler 2 puff inhalation Q4-6H PRN (Reason: bronchospasm) Qty: 8.5 0RF clonazepam 1 mg tablet See Rx Instructions .ROUTE .COMPLEX Qty: 14 0RF Dose Instruction: TAKE 1 TABLET BY MOUTH DAILY Rx Instructions: TAKE 1 TABLET BY MOUTH DAILY hydroxyzine HCl 10 mg tablet See Rx Instructions .ROUTE .COMPLEX Qty: 60 0RF Dose Instruction: TAKE 1 TABLET BY MOUTH THREE TIMES DAILY NEEDED FOR ANXIETY Rx Instructions: TAKE 1 TABLET BY MOUTH THREE TIMES DAILY NEEDED FOR ANXIETY escitalopram oxalate 10 mg tablet See Rx Instructions .ROUTE .COMPLEX Qty: 90 0RF Dose Instruction: TAKE 1 TABLET BY MOUTH DAILY Rx Instructions: TAKE 1 TABLET BY MOUTH DAILY trazodone 50 mg tablet See Rx Instructions PO BEDTIME PRN (Reason: sleep) Qty: 60 0RF Rx Instructions: bedtime PRN; 1-2 tabs PO lidocaine 5 % ointment 1 applic topical DAILY PRN (Reason: pain) Qty: 30 1RF sucralfate [Carafate] 100 mg/mL suspension 10 ml PO QID PRN (Reason: indigestion ) Qty: 420 0RF Rx Instructions: swish in mouth and swallow; use after food/drink Referrals: Daniel Finley DO [Primary Care Provider] - Visit Report Forms: Patient Portal/API
== END 2022-04-14 21:08 | disposition home or self-care (01) ==
PROVIDERS: Emergency Provider Emergency Medicine; PCP Family Medicine
DX: R11.2 Nausea with vomiting, unspecified (principal); T36.3X5A Adverse effect of macrolides, initial encounter; Z20.822 Contact with and (suspected) exposure to COVID-19
CPT/HCPCS: 36415; 80053; 83690; 85025; 87635; 93005; 93010; 96374; 99284; C9803; J2405

== ENCOUNTER 2022-07-28 18:52 | Emergency (ER) | payer OTHER, SELFPAY ==
[2022-07-28 18:57] VITALS: BP 155/93; PULSE 104; RESP 17; TEMP 36.4; O2SAT 97; BMI 31.1
--- NOTE | 2022-07-28 20:46 | ED.BACK ---
HPI - Back Pain/Injury General Chief Complaint: Back Pain/Injury Stated Complaint: Back pain Time Seen by Provider: 07/28/22 20:36 Source: patient History of Present Illness HPI Narrative: Patient here with sister. Patient injured her lower back 6:00 p.m. tonight. She was trying to kick her CT. She put her weight on her right foot lifted her left foot and kicked backwards. She felt a pop in her right lower back it radiates down to her right foot. No loss control of bowel or bladder. Has cold sensation to her right foot. No weakness. Patient was able to walk at home. Very painful to move around at this time. Patient lying supine. Denies does not want a test. Never had surgery on her lower back. Had osteopathic treatment for her lower back years ago and has been doing well. No recent imaging. No fever or chills. No saddle paresthesia. No bowel or bladder incontinence. She heard and felt a pop in her lower back Related Data Previous Rx's Medication Instructions Recorded sucralfate 100 mg/mL oral 10 ml PO QID PRN indigestion #420 02/21/20 suspension (Carafate) mL clonazepam 1 mg tablet See Rx Instructions .Route 01/25/21 .COMPLEX #14 tabs hydroxyzine HCl 10 mg tablet See Rx Instructions .Route 02/10/21 .COMPLEX #60 tabs trazodone 50 mg tablet See Rx Instructions PO BEDTIME PRN 03/18/21 sleep #60 tabs lidocaine 5 % topical ointment 1 applic topical DAILY PRN pain 01/30/22 #30 grams azithromycin 250 mg tablet See Rx Instructions PO .COMPLEX #6 04/12/22 tabs benzonatate 100 mg capsule 100 mg PO TID PRN cough #30 caps 04/12/22 escitalopram oxalate 10 mg tablet See Rx Instructions .Route 05/08/22 .COMPLEX #90 tabs albuterol sulfate 90 mcg/actuation See Rx Instructions .Route 07/03/22 aerosol inhaler .COMPLEX #8.5 grams baclofen 20 mg tablet 20 mg PO TID #20 tabs 07/29/22 ibuprofen 800 mg tablet 800 mg PO TID PRN pain #20 tabs 07/29/22 Allergies Allergy/AdvReac Type Severity Reaction Status Date / Time Penicillins Allergy Severe Anaphylaxis Verified 07/28/22 19:04 buspirone AdvReac Intermediate Nausea, Verified 07/28/22 19:04 shakey, dizziness, headaches, numbness in hands Citalopram Analogues AdvReac Mild flat affect Verified 07/28/22 19:04 Review of Systems Review of Systems Narrative: GENERAL: Denies chills, fatigue, malaise, fever, sweats. HEENT: Denies sinus pain, ear pain, sore throat RESPIRATORY: Denies dyspnea, cough CARDIOVASCULAR: Denies chest pain, palpitations GASTROINTESTINAL: Denies nausea, vomiting, abdominal pain : Denies dysuria, frequency, hematuria MUSCULOSKELETAL: Positive back pain, muscle or bony pain SKIN: Denies rash, skin lesions NEUROLOGIC: Denies weakness, numbness ROS Unobtainable: All systems reviewed & are unremarkable except as noted in HPI and below Patient History Medical History Body posture problem Caffeine abuse Cervical somatic dysfunction Chicken pox Chronic back pain Chronic neck pain Chronic tension headaches Cranial somatic dysfunction Crepitus of left TMJ on opening of jaw Elevated lipoprotein A level Family history of cardiovascular disease Generalized anxiety disorder with panic attacks Generalized pruritus Guyon syndrome History of live (~11/12/17) Injury, thumb Insomnia disorder with non-sleep disorder mental comorbidity Lumbar region somatic dysfunction Musculoskeletal disorder involving masseter Panic disorder Pelvic somatic dysfunction Sacral region somatic dysfunction Segmental and somatic dysfunction of abdomen and other regions Segmental and somatic dysfunction of rib cage Stressful life event affecting family Subungual hematoma Thoracic region somatic dysfunction Well female exam with routine gynecological exam Family History Mother History of heart attack History of heart disease Hyperlipidemia Hypertension Fatty liver Brother Anxiety History of bipolar disorder History of heart disease Hyperlipidemia Mental health problem Fatty liver Sister Anxiety Depression Mental health problem Grandfather Hwang's syndrome Grandmother Cancer Social History Smoking Status: Current every day smoker Tobacco: How many years used: 20 quit status: considering quitting second hand exposure: Yes (my also smokes.) alcohol intake: former substance use type: marijuana Smoking Status: Current every day smoker alcohol intake frequency: 0-2 drinks per day Substance Use Type: does not use Exam Narrative Exam Narrative: GENERAL: in no distress, not toxic not dyspneic HEAD: Normocephalic. EYES: Pupils equal round No scleral icterus. ENT: Mucous membranes moist. NECK: Trachea midline. CARDIOVASCULAR: Regular rate and rhythm without murmurs RESPIRATORY: Clear to auscultation. Breath sounds equal bilaterally. No wheezes, rales, or rhonchi. EXTREMITIES: No gross deformities. BACK: Reproducible right lower paralumbar muscle tenderness. Increased pain with right straight leg raise. Reproduces right lower back pain with left straight leg raise. Each at 30?. Light touch intact to foot and toes. Strong bilateral pedal pulses. Feet are warm soft and pink. Brisk cap refills. NEURO: AOx4. Light touch intact to bilateral feet and toes. Strong bilateral ankle flexion-extension. SKIN: Warm and dry PSYCH: Not anxious, is cooperative Initial Vital Signs Initial Vital Signs: Vital Signs Temperature 97.6 F 07/28/22 18:57 Pulse Rate 104 H 07/28/22 18:57 Respiratory Rate 17 07/28/22 18:57 Blood Pressure 155/93 H 07/28/22 18:57 Pulse Oximetry 97 07/28/22 18:57 Oxygen Delivery Method 07/28/22 18:57 Course Course Course Narrative: No new issues during course of stay Orders Ordered: ED Orders 07/28/22 22:48 CT lumbar spine wo con Stat Discontinued Medications Ketorolac Tromethamine (Ketorolac 30 Mg/Ml Vial) 15 mg IV NOW ONE Stop: 07/28/22 20:46 Last Admin: 07/28/22 20:57 Dose: 15 mg Documented By: PARIS Morphine Sulfate (Morphine 4 Mg/Ml Inj) 4 mg IV NOW ONE Stop: 07/28/22 20:46 Last Admin: 07/28/22 20:57 Dose: 4 mg Documented By: PARIS Morphine Sulfate (Morphine 4 Mg/Ml Inj) 4 mg IV NOW ONE Stop: 07/28/22 22:49 Last Admin: 07/28/22 22:53 Dose: 4 mg Documented By: PARIS Ondansetron HCl (Ondansetron 4 Mg/2 Ml Inj) 4 mg IV NOW ONE Stop: 07/28/22 20:46 Last Admin: 07/28/22 20:57 Dose: 4 mg Documented By: PARIS Reevaluation(s) Reevaluation #1: Reviewed CT scan with patient and sister. Patient up and walking with sister to the bathroom. Is stable. Return precautions reviewed with patient. She does have a family doctor for outpatient follow up MRI of lumbar spine if not improving 7 or 10 days. They desire discharge home Time: 00:20 Vital Signs Vital signs: Vital Signs - 8 hr 07/28/22 18:57 07/29/22 00:35 Temperature 97.6 F Pulse Rate 104 H 65 Respiratory Rate 17 16 Blood Pressure 155/93 H 144/80 H Pulse Oximetry 97 100 Oxygen Delivery Method Room Air Room Air MDM - Back Pain/Injury Differential Diagnosis Differential diagnosis: Likely lumbar radiculopathy, sciatica and other (Bulge disc) Imaging Data CT lumbar spine: Radiologist's Impression: [address] [address] [address] Scan Report Signed Patient: Brianna Madden MR#: [id number] : 1985 Acct:[id number] Age/Sex: 36 / F Date of Service: 07/28/22 Loc: ED Accession Number: [id number] ?? Procedure: CT lumbar spine wo con Ordering Provider: Az Stevens MD PROCEDURE:? CT LUMBAR SPINE WO CON ? INDICATIONS:? Pain/injury ? TECHNIQUE:? Noncontrast 3 mm thick sections acquired from the T12 level to the sacrum.? Sagittal and coronal reformats were constructed.? For radiation dose reduction, the following was used:? automated exposure control.? ? COMPARISON:? None. ? FINDINGS:? Image quality:? Excellent.? ? Bones:? There is preserved bony alignment.? No subluxation.? Disc spaces also appear preserved.? No acute vertebral body compression fractures or other acute fractures.? No suspicious lytic or blastic bony lesions.? No pars defects.? ? Soft tissues:? No retroperitoneal masses or hematomas.? Visualized aorta is normal in caliber.? ? IMPRESSION:? ? 1. No acute fracture or subluxation. ? ? Dictated by: Claudy Clemente M.D. on 07/29/2022 at 0:03 ? ? Approved by: Claudy Clemente M.D. on 07/29/2022 at 0:06 ? MDM Narrative Medical decision making narrative: Appropriate for discharge home. Exam and imaging otherwise reassuring. No blood work indicated given trauma event. Return precautions reviewed with patient and sister. Sister will be driving and taking care of her kids. Patient up and walking to the bathroom at time of discharge. Otherwise neurovascularly intact. Pain is controlled and improved. Patient understands will need MRI if not improving 7 or 10 days. They desire discharge home Discharge Plan Departure Patient Disposition: Home Clinical Impression: Acute back pain with sciatica Instructions: DI for Sciatica, DI for Back Strain or Sprain Activity Restrictions/Additional Instructions: No driving or operating machinery tonight or when taking prescribed medications. Return if worse if any questions or concerns. You must have help from family for taking care of your children. No lifting or bending. See family doctor next week for re-evaluation and may need to schedule MRI of your lower back if not improving. Prescriptions: New baclofen 20 mg tablet 20 mg PO TID Qty: 20 0RF ibuprofen 800 mg tablet 800 mg PO TID PRN (Reason: pain) Qty: 20 0RF No Action azithromycin 250 mg tablet See Rx Instructions PO .COMPLEX Qty: 6 0RF Rx Instructions: take 500 mg today (day 1), then 250 mg for 4 days (days 2-5) PO benzonatate 100 mg capsule 100 mg PO TID PRN (Reason: cough) Qty: 30 0RF clonazepam 1 mg tablet See Rx Instructions .ROUTE .COMPLEX Qty: 14 0RF Dose Instruction: TAKE 1 TABLET BY MOUTH DAILY Rx Instructions: TAKE 1 TABLET BY MOUTH DAILY hydroxyzine HCl 10 mg tablet See Rx Instructions .ROUTE .COMPLEX Qty: 60 0RF Dose Instruction: TAKE 1 TABLET BY MOUTH THREE TIMES DAILY NEEDED FOR ANXIETY Rx Instructions: TAKE 1 TABLET BY MOUTH THREE TIMES DAILY NEEDED FOR ANXIETY escitalopram oxalate 10 mg tablet See Rx Instructions .ROUTE .COMPLEX Qty: 90 3RF Dose Instruction: TAKE 1 TABLET BY MOUTH DAILY Rx Instructions: TAKE 1 TABLET BY MOUTH DAILY albuterol sulfate 90 mcg/actuation HFA aerosol inhaler See Rx Instructions .ROUTE .COMPLEX Qty: 8.5 1RF Dose Instruction: INHALE 2 PUFFS INTO THE LUNGS EVERY 4 TO 6 HOURS NEEDED FOR BRONCHOSPASM Rx Instructions: INHALE 2 PUFFS INTO THE LUNGS EVERY 4 TO 6 HOURS NEEDED FOR BRONCHOSPASM trazodone 50 mg tablet See Rx Instructions PO BEDTIME PRN (Reason: sleep) Qty: 60 0RF Rx Instructions: bedtime PRN; 1-2 tabs PO lidocaine 5 % ointment 1 applic topical DAILY PRN (Reason: pain) Qty: 30 1RF sucralfate [Carafate] 100 mg/mL suspension 10 ml PO QID PRN (Reason: indigestion ) Qty: 420 0RF Rx Instructions: swish in mouth and swallow; use after food/drink Referrals: Juan Finley DO [Primary Care Provider] - Visit Report Forms: Patient Portal/API
[2022-07-28] MEDS: ONDANSETRON 4 MG/2 ML INJ IV (20:57)
[2022-07-28] MEDS: KETOROLAC 30 MG/ML VIAL 15 MG IV (20:57)
[2022-07-28] MEDS: MORPHINE 4 MG/ML INJ IV ×2 (20:57→22:53)
--- NOTE | 2022-07-28 22:48 | DI.CT.S_ITS ---
PROCEDURE: CT LUMBAR SPINE WO CON INDICATIONS: Pain/injury TECHNIQUE: Noncontrast 3 mm thick sections acquired from the T12 level to the sacrum. Sagittal and coronal reformats were constructed. For radiation dose reduction, the following was used: automated exposure control. COMPARISON: None. FINDINGS: Image quality: Excellent. Bones: There is preserved bony alignment. No subluxation. Disc spaces also appear preserved. No acute vertebral body compression fractures or other acute fractures. No suspicious lytic or blastic bony lesions. No pars defects. Soft tissues: No retroperitoneal masses or hematomas. Visualized aorta is normal in caliber. IMPRESSION: 1. No acute fracture or subluxation. Dictated by: Claudy Clemente M.D. on 07/29/2022 at 0:03 Approved by: Claudy Clemente M.D. on 07/29/2022 at 0:06
[2022-07-29 00:35] VITALS: BP 144/80; PULSE 65; RESP 16; O2SAT 100
== END 2022-07-29 00:36 | disposition home or self-care (01) ==
PROVIDERS: Emergency Provider Emergency Medicine; PCP Family Medicine
DX: M54.41 Lumbago with sciatica, right side (principal)
CPT/HCPCS: 72131; 96374; 96375; 96376; 99283; 99284; J1885; J2270; J2405

== ENCOUNTER → 2022-11-28 14:08 | Outpatient (CLI) | payer OTHER, SELFPAY ==
[2022-11-28 15:32] LABS: TSH w/ Reflex to FT4 2.05 uIU/mL (0.47-4.68)
== END ==
PROVIDERS: PCP Family Medicine; Referring Provider Family Medicine; Visit Provider Family Medicine
DX: L65.9 Nonscarring hair loss, unspecified (principal)
CPT/HCPCS: 36415; 84443

== ENCOUNTER 2023-08-04 10:11 | Emergency (ER) | payer OTHER, SELFPAY ==
[2023-08-04 10:20] VITALS: BP 138/94; PULSE 89; RESP 20; TEMP 36.8; O2SAT 96; BMI 32.1
[2023-08-04] MEDS: MAG HYDROX/ALUM/SIMETH 30 ML UDC PO (10:44)
--- NOTE | 2023-08-04 11:14 | ED_ITS ---
HPI - Abdominal Pain <Reed Parry PA-C - Last Filed: 08/04/23 11:35> General Chief Complaint: Abdominal Pain Stated Complaint: RT SIDE UPPER ABD PAIN Time Seen by Provider: 08/04/23 11:14 Source: patient Mode of arrival: Ambulatory History of Present Illness HPI narrative: This is a 37-year-old female presents to the emergency department due to epigastric and right upper quadrant abdominal pain onset at 1:30 a.m. this morning. States that it was a severe pain with a somewhat of a burning sensation that began in her epigastric area and radiated slightly to her right side. She states that she is a has a history of similar symptoms due to the ?stress eating she does?. Patient was given Maalox prior to my arrival and states she feels ?completely better?. Denies any nausea, vomiting, diarrhea, abdominal pain, chest pain, shortness of breath, or any other concerning signs or symptoms. Related Data Previous Rx's Medication Instructions Recorded sucralfate 100 mg/mL oral 10 ml PO QID PRN indigestion #420 02/21/20 suspension (Carafate) mL clonazepam 1 mg tablet See Rx Instructions .Route 01/25/21 .COMPLEX #14 tabs hydroxyzine HCl 10 mg tablet See Rx Instructions .Route 02/10/21 .COMPLEX #60 tabs trazodone 50 mg tablet See Rx Instructions PO BEDTIME PRN 03/18/21 sleep #60 tabs lidocaine 5 % topical ointment 1 applic topical DAILY PRN pain 01/30/22 #30 grams azithromycin 250 mg tablet See Rx Instructions PO .COMPLEX #6 04/12/22 tabs benzonatate 100 mg capsule 100 mg PO TID PRN cough #30 caps 04/12/22 baclofen 20 mg tablet 20 mg PO TID #20 tabs 07/29/22 ibuprofen 800 mg tablet 800 mg PO TID PRN pain #20 tabs 07/29/22 albuterol sulfate 90 mcg/actuation See Rx Instructions .Route 02/06/23 aerosol inhaler .COMPLEX #8.5 grams escitalopram oxalate 10 mg tablet See Rx Instructions .Route 02/06/23 .COMPLEX #90 tabs aluminum-mag hydroxide-simethicone 10 ml PO QID PRN dyspepsia #3,000 08/04/23 200 mg-200 mg-20 mg/5 mL oral susp mL (Maalox Advanced) pantoprazole 40 mg tablet,delayed 40 mg PO DAILY #30 tabs 08/04/23 release Allergies Allergy/AdvReac Type Severity Reaction Status Date / Time Penicillins Allergy Severe Anaphylaxis Verified 08/04/23 10:28 buspirone AdvReac Intermediate Nausea, Verified 08/04/23 10:28 shakey, dizziness, headaches, numbness in hands Citalopram Analogues AdvReac Mild flat affect Verified 08/04/23 10:28 Review of Systems <Reed Parry PA-C - Last Filed: 08/04/23 11:35> Review of Systems Narrative: GENERAL: Denies chills, fatigue, malaise, fever, sweats. HEENT: Denies sinus pain, ear pain, sore throat, difficulty swallowing, dizziness. RESPIRATORY: Denies dyspnea, cough, wheezing, hemoptysis, sputum. CARDIOVASCULAR: Denies chest pain, palpitations, orthopnea, edema, GASTROINTESTINAL: Reports history of abdominal pain but Denies nausea, vomiting, abdominal pain currently, diarrhea, constipation, melena. : Denies dysuria, frequency, incontinence, hematuria, urinary retention. MUSCULOSKELETAL: denies weakness, joint pain, or bony pain SKIN: Denies rash, skin lesions, or other NEUROLOGIC: Denies weakness, headache, numbness, change in speech, confusion, seizures, incoordination. PSYCHIATRIC: No concerning psychosocial issues. 12 point review of systems is negative except for those stated above Patient History <Reed Parry PA-C - Last Filed: 08/04/23 11:35> Medical History (Updated 08/04/23 @ 11:32 by Reed Parry PA-C) Medication side effects Hair loss Ataxia Hand weakness Tremor of both hands Paresthesia of both legs Leg weakness, bilateral Acute right-sided low back pain with bilateral sciatica Subungual hematoma Injury, thumb Well female exam with routine gynecological exam Insomnia disorder with non-sleep disorder mental comorbidity Segmental and somatic dysfunction of rib cage Crepitus of left TMJ on opening of jaw Guyon syndrome Stressful life event affecting family Caffeine abuse Generalized pruritus Musculoskeletal disorder involving masseter Body posture problem Segmental and somatic dysfunction of abdomen and other regions Sacral region somatic dysfunction Pelvic somatic dysfunction Lumbar region somatic dysfunction Thoracic region somatic dysfunction Cervical somatic dysfunction Cranial somatic dysfunction Chronic tension headaches Chronic back pain Chronic neck pain Generalized anxiety disorder with panic attacks History of live (~11/12/17) Chicken pox Elevated lipoprotein A level Panic disorder Family history of cardiovascular disease Family History Mother History of heart attack History of heart disease Hyperlipidemia Hypertension Fatty liver Brother Anxiety History of bipolar disorder History of heart disease Hyperlipidemia Mental health problem Fatty liver Sister Anxiety Depression Mental health problem Grandfather Hwang's syndrome Grandmother Cancer Social History Smoking Status: Current every day smoker Tobacco: How many years used: 20 quit status: considering quitting second hand exposure: Yes (my also smokes.) alcohol intake: former substance use type: marijuana Smoking Status: Current every day smoker alcohol intake frequency: 0-2 drinks per day Substance Use Type: does not use Exam <Reed Parry PA-C - Last Filed: 08/04/23 11:35> Narrative Exam Narrative: GENERAL: Well-developed patient, in mild distress. HEAD: Atraumatic. Normocephalic. EYES: Pupils equal round and reactive. Extraocular motions intact. No scleral icterus. No injection or drainage. ENT: Nose without bleeding, purulent drainage. Throat without erythema, tonsillar hypertrophy or exudate. Airway patent. NECK: Trachea midline. Non tender CARDIOVASCULAR: Regular rate and rhythm without murmurs, gallops, or rubs. RESPIRATORY: Clear to auscultation. Breath sounds equal bilaterally. No wheezes, rales, or rhonchi. GASTROINTESTINAL: Abdomen soft, non-tender, nondistended. EXTREMITIES: No edema or joint tenderness. BACK: Nontender without deformity or crepitance. No flank tenderness. NEURO: AOx3. SKIN: No rash or erythema of visible areas Initial Vital Signs Initial Vital Signs: Vital Signs Temperature 98.2 F 08/04/23 10:20 Pulse Rate 89 08/04/23 10:20 Respiratory Rate 20 08/04/23 10:20 Blood Pressure 138/94 H 08/04/23 10:20 Pulse Oximetry 96 08/04/23 10:20 Oxygen Delivery Method Room Air 08/04/23 10:20 <Eunice Manuel DO - Last Filed: 08/05/23 20:59> Initial Vital Signs Initial Vital Signs: Vital Signs Temperature 98.2 F 08/04/23 10:20 Pulse Rate 89 08/04/23 10:20 Respiratory Rate 20 08/04/23 10:20 Blood Pressure 138/94 H 08/04/23 10:20 Pulse Oximetry 96 08/04/23 10:20 Oxygen Delivery Method Room Air 08/04/23 10:20 Course <Reed Parry PA-C - Last Filed: 08/04/23 11:35> Orders Ordered: Discontinued Medications Al Hydrox/Mg Hydrox/Simethicone (Mag Hydrox/Alum/Simeth 30 Ml Udc) 30 ml PO NOW ONE Stop: 08/04/23 10:41 Last Admin: 08/04/23 10:44 Dose: 30 ml Documented By: OW Vital Signs Vital signs: Vital Signs - 8 hr 08/04/23 10:20 Temperature 98.2 F Pulse Rate 89 Respiratory Rate 20 Blood Pressure 138/94 H Pulse Oximetry 96 Oxygen Delivery Method Room Air <Eunice Manuel DO - Last Filed: 08/05/23 20:59> Orders Ordered: Discontinued Medications Al Hydrox/Mg Hydrox/Simethicone (Mag Hydrox/Alum/Simeth 30 Ml Udc) 30 ml PO NOW ONE Stop: 08/04/23 10:41 Last Admin: 08/04/23 10:44 Dose: 30 ml Documented By: OW Vital Signs Vital signs: Vital Signs - 8 hr 08/04/23 10:20 Temperature 98.2 F Pulse Rate 89 Respiratory Rate 20 Blood Pressure 138/94 H Pulse Oximetry 96 Oxygen Delivery Method Room Air MDM - Abdominal Pain <Reed Parry PA-C - Last Filed: 08/04/23 11:35> MDM Narrative Medical decision making narrative: MDM * differential diagnosis includes but not limited to cholecystitis, cholelithiasis, choledocholithiasis, PUD, GERD, gastritis, gastroenteritis * Prior records reviewed: Patient was seen here 2 years ago for abdominal cramping. No abnormal findings of time. * My lab interpretation: None obtained * My imgaing interpretation: None obtained * Clinical Decision Rules/Scores evaluated: None * Independent discussions with: None ED Course: This is a 37-year-old female presents to the emergency department complaining of epigastric and right-sided abdominal pain. Patient was given a dose of Maalox prior to my arrival and seeing the patient. She states that she feels completely better and was very happy with the improvement in the pain. No abnormal vitals and patient exam very reassuring. No right upper quadrant tenderness to palpation. Will discharge with a prescription for Maalox as well as pantoprazole to treat this suspected gastritis. Shared Decision Making: Discussed plan with the patient who is comfortable with the plan. Social Considerations: None Disposition: Discharged home Discharge Plan Departure Patient Disposition: Home Clinical Impression: Gastritis Instructions: DI for Dyspepsia Activity Restrictions/Additional Instructions: Thank you for coming to the [facility] Emergency Department today. I am glad you are feeling so much better after the medication given to today. I have prescribed this as well as pantoprazole which should help with your symptoms. Please follow up with your primary care provider for long-term management and control of the symptoms. I hope you feel better soon. Please follow up with your primary care provider within a week if your symptoms continue. If you do not have a primary care provider please contact the [facility] Resource line at [phone]. They will ask some questions about your medical history and help you get set up with a provider in the community. Prescriptions: New alum-mag hydroxide-simeth [Maalox Advanced] 200-200-20 mg/5 mL suspension 10 ml PO QID PRN (Reason: dyspepsia) Qty: 3000 0RF Rx Instructions: administer between meals and at bedtime as needed pantoprazole 40 mg tablet,delayed release (DR/EC) 40 mg PO DAILY Qty: 30 0RF No Action azithromycin 250 mg tablet See Rx Instructions PO .COMPLEX Qty: 6 0RF Rx Instructions: take 500 mg today (day 1), then 250 mg for 4 days (days 2-5) PO benzonatate 100 mg capsule 100 mg PO TID PRN (Reason: cough) Qty: 30 0RF clonazepam 1 mg tablet See Rx Instructions .ROUTE .COMPLEX Qty: 14 0RF Dose Instruction: TAKE 1 TABLET BY MOUTH DAILY Rx Instructions: TAKE 1 TABLET BY MOUTH DAILY hydroxyzine HCl 10 mg tablet See Rx Instructions .ROUTE .COMPLEX Qty: 60 0RF Dose Instruction: TAKE 1 TABLET BY MOUTH THREE TIMES DAILY NEEDED FOR ANXIETY Rx Instructions: TAKE 1 TABLET BY MOUTH THREE TIMES DAILY NEEDED FOR ANXIETY albuterol sulfate 90 mcg/actuation HFA aerosol inhaler See Rx Instructions .ROUTE .COMPLEX Qty: 8.5 1RF Dose Instruction: INHALE 2 PUFFS INTO THE LUNGS EVERY 4 TO 6 HOURS NEEDED FOR BRONCHOSPASM Rx Instructions: INHALE 2 PUFFS INTO THE LUNGS EVERY 4 TO 6 HOURS NEEDED FOR BRONCHOSPASM escitalopram oxalate 10 mg tablet See Rx Instructions .ROUTE .COMPLEX Qty: 90 3RF Dose Instruction: TAKE 1 TABLET BY MOUTH DAILY Rx Instructions: TAKE 1 TABLET BY MOUTH DAILY trazodone 50 mg tablet See Rx Instructions PO BEDTIME PRN (Reason: sleep) Qty: 60 0RF Rx Instructions: bedtime PRN; 1-2 tabs PO lidocaine 5 % ointment 1 applic topical DAILY PRN (Reason: pain) Qty: 30 1RF baclofen 20 mg tablet 20 mg PO TID Qty: 20 0RF ibuprofen 800 mg tablet 800 mg PO TID PRN (Reason: pain) Qty: 20 0RF sucralfate [Carafate] 100 mg/mL suspension 10 ml PO QID PRN (Reason: indigestion ) Qty: 420 0RF Rx Instructions: swish in mouth and swallow; use after food/drink Referrals: Juan Finley DO [Primary Care Provider] - Stand Alone Forms: Patient Portal/API ED Sign-out <Eunice Manuel DO - Last Filed: 08/05/23 20:59> Cosign ED Attending Deana Attestation: I was immediately available in the department for consultation. Documentation has been reviewed.
[2023-08-04 11:54] VITALS: BP 130/85; PULSE 78; RESP 20; O2SAT 100
== END 2023-08-04 11:55 | disposition home or self-care (01) ==
PROVIDERS: Emergency Provider Physician Assistant Medical; PCP Family Medicine
DX: K29.70 Gastritis, unspecified, without bleeding (principal); R03.0 Elevated blood-pressure reading, without diagnosis of hypertension
CPT/HCPCS: 93005; 99283

== ENCOUNTER 2023-10-29 09:56 | Emergency (ER) | payer OTHER, SELFPAY ==
[2023-10-29] VITALS (21 sets, daily range): BP systolic 109–152; BP diastolic 64–92; PULSE 55–111; RESP 9–26; TEMP 37; O2SAT 95–99
[2023-10-29] MEDS: ONDANSETRON 4 MG/2 ML INJ IV (10:25)
[2023-10-29 10:29] LABS: Add Manual Diff / Slide Review NO; Basophils Absolute Auto 0 /uL (0-100); Basophils Percent Auto 0.4 % (0-2); Eosinophils Absolute Auto 100 /uL (0-450); Eosinophils Percent Auto 1.2 % (2-4); Hematocrit 42.2 % (36-46); Hemoglobin 14.4 g/dL (12.0-16.0); Lymphocytes Absolute Auto 2600 /uL (1100-4500); Lymphocytes Percent Auto 26.8 % (25-40); Mean Corpuscular Volume 94.2 fL (80-100); Monocytes Absolute Auto 800 /uL (0-900); Monocytes Percent Auto 7.9 % (3-14); Neutrophils Absolute Auto 6200 /uL (1500-7000); Neutrophils Percent Auto 63.7 % (50-75); Platelet Count 225 X10^3/uL (150-400); Red Blood Cell Count 4.48 X10^6/uL (4.0-5.2); White Blood Cell Count 9.7 X10^3/uL (4.5-11.0)
[2023-10-29 10:43] LABS: Alanine Aminotransferase 15 IU/L (<35); Albumin 4.3 g/dL (3.5-5.0); Albumin Globulin Ratio 1.4 (1.0-2.8); Alkaline Phosphatase 61 U/L (38-126); Aspartate Aminotransferase 22 IU/L (14-36); BUN Creatinine Ratio 16.9 (6-22); Bilirubin Total 0.5 mg/dL (0.2-1.3); Blood Urea Nitrogen 11 mg/dL (7-17); Calcium 9.3 mg/dL (8.4-10.2); Carbon Dioxide 22 mmol/L (22-32); Chloride 107 mmol/L (98-107); Estimated Glomerular Filt Rate > 60 mL/min (>60); Glucose 92 mg/dL (70-100); HEMOLYSIS < 15 (0-50); Lipase 62 U/L (23-300); Sodium 137 mmol/L (137-145); Total Protein 7.3 g/dL (6.3-8.2)
[2023-10-29] MEDS: KETOROLAC 30 MG/ML VIAL 15 MG IV (11:23)
[2023-10-29 12:23] LABS: Pregnancy Test Serum,Qual Negative (Negative)
--- NOTE | 2023-10-29 12:40 | PC.NURSE ---
Pt reports back pain that started on and radiates to right lower abdomen. There was no recent injury. Pt believed it was from being sore d/t sitting on gymnasium floors for her 5 y/o daughters gym practice. She is able to walk but has to shuffle and walk slowly. Movement doesnt make the pain worse. She is unable to get comfortable and has decreased range of motion in her right leg due to her right hip feeling really tight, like it will pop if I go further. Pt felt nauseous with IV insertion, expressing anxiety about needles, but denies nausea before ER visit and denies nausea after receiving medication after IV placement (see MAR). She also describes the flank/abdomen pain similar to contractions with the pressure.
--- NOTE | 2023-10-29 13:35 | ED_ITS ---
HPI - Abdominal Pain General Chief Complaint: Abdominal Pain Stated Complaint: intense pain rt side from back to ovaries t-5 Time Seen by Provider: 10/29/23 12:02 Source: patient, RN notes reviewed and old records reviewed Mode of arrival: Family Vehicle Limitations: no limitations History of Present Illness HPI narrative: 38-year-old female who is only daily medication is Lexapro presents with complaint of right sided pain started in her right lower quadrant and the buttock and sort of wraps around her groin. She states everything seems to make it worse any sort of movement or positioning. Initially she could push on the area and help decrease pain with pressure. Patient states that has stopped being effective. She was taking Motrin at home without any improvement. Patient denies any fevers or chills. She has had some mild nausea but no active vomiting. This is improved after Zofran here in the department. Denies any chest pain or pressure, no shortness breath. She states has been having regular formed bowel movements without any black or blood. Denies any dysuria, urgency or frequency. She states when she has a bowel movement or urinate it does sort of relieve the pressure but does not resolve the pain. Patient states no rash or skin changes no blistering. No vaginal bleeding or discharge. Her last menstrual cycle was the beginning of October. Patient has not had similar symptoms in the past. Patient's only home medication is Lexapro. Denies any prior surgeries. States allergies to penicillin and Bactrim she does not know exact symptoms she states it was when she was a baby. Does smoke tobacco daily, occasional alcohol, no recreational drugs. Related Data Previous Rx's Medication Instructions Recorded sucralfate 100 mg/mL oral 10 ml PO QID PRN indigestion #420 02/21/20 suspension (Carafate) mL clonazepam 1 mg tablet See Rx Instructions .Route 01/25/21 .COMPLEX #14 tabs hydroxyzine HCl 10 mg tablet See Rx Instructions .Route 02/10/21 .COMPLEX #60 tabs trazodone 50 mg tablet See Rx Instructions PO BEDTIME PRN 03/18/21 sleep #60 tabs lidocaine 5 % topical ointment 1 applic topical DAILY PRN pain 01/30/22 #30 grams azithromycin 250 mg tablet See Rx Instructions PO .COMPLEX #6 04/12/22 tabs benzonatate 100 mg capsule 100 mg PO TID PRN cough #30 caps 04/12/22 baclofen 20 mg tablet 20 mg PO TID #20 tabs 07/29/22 ibuprofen 800 mg tablet 800 mg PO TID PRN pain #20 tabs 07/29/22 escitalopram oxalate 10 mg tablet See Rx Instructions .Route 02/06/23 .COMPLEX #90 tabs aluminum-mag hydroxide-simethicone 10 ml PO QID PRN dyspepsia #3,000 08/04/23 200 mg-200 mg-20 mg/5 mL oral susp mL (Maalox Advanced) albuterol sulfate 90 mcg/actuation See Rx Instructions .Route 08/17/23 aerosol inhaler .COMPLEX #8.5 grams pantoprazole 40 mg tablet,delayed 40 mg PO DAILY #30 tabs 09/12/23 release oxycodone 5 mg tablet 5 mg PO Q6H PRN pain #14 tabs 10/29/23 Allergies Allergy/AdvReac Type Severity Reaction Status Date / Time Penicillins Allergy Severe Anaphylaxis Verified 10/29/23 10:11 buspirone AdvReac Intermediate Nausea, Verified 10/29/23 10:11 shakey, dizziness, headaches, numbness in hands Citalopram Analogues AdvReac Mild flat affect Verified 10/29/23 10:11 Review of Systems Review of Systems ROS Unobtainable: All systems reviewed & are unremarkable except as noted in HPI and below Patient History Medical History Medication side effects Hair loss Ataxia Hand weakness Tremor of both hands Paresthesia of both legs Leg weakness, bilateral Acute right-sided low back pain with bilateral sciatica Subungual hematoma Injury, thumb Well female exam with routine gynecological exam Insomnia disorder with non-sleep disorder mental comorbidity Segmental and somatic dysfunction of rib cage Crepitus of left TMJ on opening of jaw Guyon syndrome Stressful life event affecting family Caffeine abuse Generalized pruritus Musculoskeletal disorder involving masseter Body posture problem Segmental and somatic dysfunction of abdomen and other regions Sacral region somatic dysfunction Pelvic somatic dysfunction Lumbar region somatic dysfunction Thoracic region somatic dysfunction Cervical somatic dysfunction Cranial somatic dysfunction Chronic tension headaches Chronic back pain Chronic neck pain Generalized anxiety disorder with panic attacks History of live (~11/12/17) Chicken pox Elevated lipoprotein A level Panic disorder Family history of cardiovascular disease Family History Mother History of heart attack History of heart disease Hyperlipidemia Hypertension Fatty liver Brother Anxiety History of bipolar disorder History of heart disease Hyperlipidemia Mental health problem Fatty liver Sister Anxiety Depression Mental health problem Grandfather Hwang's syndrome Grandmother Cancer Social History Smoking Status: Current every day smoker Tobacco: How many years used: 20 quit status: considering quitting second hand exposure: Yes (my also smokes.) alcohol intake: former substance use type: marijuana Smoking Status: Current every day smoker alcohol intake frequency: 0-2 drinks per day Substance Use Type: does not use Exam Narrative Exam Narrative: GENERAL: Alert and oriented x three, female in moderate distress. HEENT: Head normocephalic, atraumatic, EOMI, pupils reactive, face symmetric, moist mucous membranes NECK: Supple, full range of motion CARDIOVASCULAR: Regular rate and rhythm without murmurs, rubs or gallops. RESPIRATORY: Breath sounds equal bilaterally, no wheezes rales or rhonchi. ABDOMEN: Soft, patient has right lower quadrant tenderness. Also has some mild left lower quadrant tenderness. No palpable hernia on examination. Normoactive bowel sounds all 4 quadrants. No guarding or rebound, rigidity, no mass : No CVA tenderness bilaterally. BACK: No cervical, thoracic or lumbar vertebral point tenderness. Patient does not have any tenderness over the buttock or SI joint. Patient has decreased range of motion. She is most comfortable lying on her left side. Muscle strength is 5/5 in lower extremities, EXTREMITIES: Normal range of motion, no clubbing or edema. Neurovascularly intact NEUROLOGICAL: Cranial nerves II through XII grossly intact. Moving all extremities SKIN: Warm, dry, no petechiae, no rashes or lesions. Initial Vital Signs Initial Vital Signs: Vital Signs Temperature 98.6 F 10/29/23 10:08 Pulse Rate 79 10/29/23 10:08 Respiratory Rate 16 10/29/23 10:08 Blood Pressure 152/92 H 10/29/23 10:08 Pulse Oximetry 96 10/29/23 10:08 Oxygen Delivery Method Room Air 10/29/23 10:08 Course Orders Ordered: ED Orders 10/29/23 10:11 EKG-12 Lead Stat 10/29/23 10:15 Complete Blood Count AUTO DIFF Stat Comprehensive Metabolic Panel Stat Lipase Stat Test Serum,Qual Stat 10/29/23 13:49 CT abdomen pelvis w con Stat 10/29/23 15:03 US pelvic complete Stat Ondansetron HCl (Ondansetron 4 Mg Odt) 4 mg PO NOW PRN PRN Reason: Nausea And Vomiting Ondansetron HCl (Ondansetron 4 Mg/2 Ml Inj) 4 mg IV NOW PRN PRN Reason: Nausea And Vomiting Last Admin: 10/29/23 10:25 Dose: 4 mg Documented By: SAGE Discontinued Medications Sodium Chloride (Normal Saline 0.9%) 1,000 mls @ 1,000 mls/hr IV BOLUS ONE Stop: 10/29/23 14:49 Last Infusion: 10/29/23 15:10 Dose: Infused Documented By: Admin: 10/29/23 14:07 Dose: 1,000 mls/hr Documented By: OSIEL Ketorolac Tromethamine (Ketorolac 30 Mg/Ml Vial) 15 mg IV NOW ONE Stop: 10/29/23 11:14 Last Admin: 10/29/23 11:23 Dose: 15 mg Documented By: SAGE Morphine Sulfate (Morphine 4 Mg/Ml Inj) 4 mg IV NOW ONE Stop: 10/29/23 13:51 Last Admin: 10/29/23 14:06 Dose: 4 mg Documented By: OSIEL Morphine Sulfate (Morphine 4 Mg/Ml Inj) 4 mg IV NOW ONE Stop: 10/29/23 16:31 Last Admin: 10/29/23 17:00 Dose: 4 mg Documented By: SAGE Vital Signs Vital signs: Vital Signs - 8 hr 10/29/23 11:00 10/29/23 11:30 10/29/23 12:00 Pulse Rate 67 55 L 60 Respiratory Rate 26 H 13 15 Blood Pressure Pulse Oximetry Oxygen Delivery Method 10/29/23 12:30 10/29/23 12:31 10/29/23 12:31 Pulse Rate 66 60 Respiratory Rate 20 22 Blood Pressure 146/70 H Pulse Oximetry 98 99 Oxygen Delivery Method 10/29/23 13:00 10/29/23 13:00 10/29/23 13:30 Pulse Rate 60 59 L Respiratory Rate 14 19 Blood Pressure 126/70 Pulse Oximetry 98 Oxygen Delivery Method Room Air 10/29/23 14:05 10/29/23 14:11 10/29/23 14:11 Pulse Rate 111 H 70 Respiratory Rate 24 10 L Blood Pressure 130/76 Pulse Oximetry 99 Oxygen Delivery Method Room Air 10/29/23 14:30 10/29/23 15:00 10/29/23 15:30 Pulse Rate 63 65 63 Respiratory Rate 14 18 19 Blood Pressure Pulse Oximetry 98 96 96 Oxygen Delivery Method Room Air Room Air 10/29/23 16:00 10/29/23 17:02 10/29/23 17:08 Pulse Rate 63 65 Respiratory Rate 14 Blood Pressure 122/69 Pulse Oximetry Oxygen Delivery Method 10/29/23 17:08 10/29/23 17:30 10/29/23 18:00 Pulse Rate 63 63 Respiratory Rate 9 L 16 Blood Pressure 109/64 Pulse Oximetry 98 95 Oxygen Delivery Method Room Air 10/29/23 18:00 Pulse Rate 61 Respiratory Rate 14 Blood Pressure Pulse Oximetry 95 Oxygen Delivery Method Room Air MDM - Abdominal Pain Lab Data 10/29/23 10:15 10/29/23 10:15 Labs: Lab Results 10/29/23 Range/Units 10:15 WBC 9.7 (4.5-11.0) X10^3/uL RBC 4.48 (4.0-5.2) X10^6/uL Hgb 14.4 (12.0-16.0) g/dL Hct 42.2 (36-46) % MCV 94.2 (80-100) fL MCH 32.0 (26-34) PG MCHC 34.0 (30-36) % RDW 13.0 (11.6-14.8) % Plt Count 225 (150-400) X10^3/uL Neut % (Auto) 63.7 (50-75) % Lymph % (Auto) 26.8 (25-40) % [place] % (Auto) 7.9 (3-14) % Eos % (Auto) 1.2 L (2-4) % Baso % (Auto) 0.4 (0-2) % Neut # (Auto) 6200 (6516-0706) /uL Lymph # (Auto) 2600 (7040-5910) /uL [place] # (Auto) 800 (0-900) /uL Eos # (Auto) 100 (0-450) /uL Baso # (Auto) 0 (0-100) /uL Sodium 137 (137-145) mmol/L Potassium 4.0 (3.4-5.1) mmol/L Chloride 107 (98-107) mmol/L Carbon Dioxide 22 (22-32) mmol/L BUN 11 (7-17) mg/dL Creatinine 0.65 (0.52-1.04) mg/dL Estimated GFR > 60 (>60) mL/min BUN/Creatinine Ratio 16.9 (6-22) Glucose 92 (70-100) mg/dL Calcium 9.3 (8.4-10.2) mg/dL Total Bilirubin 0.5 (0.2-1.3) mg/dL AST 22 (14-36) IU/L ALT 15 (<35) IU/L Alkaline Phosphatase 61 (38-126) U/L Total Protein 7.3 (6.3-8.2) g/dL Albumin 4.3 (3.5-5.0) g/dL Globulin 3.0 (1.7-4.1) g/dL Albumin/Globulin Ratio 1.4 (1.0-2.8) Lipase 62 (23-300) U/L Serum , Qual Negative (Negative) Point of care testing: Point of Care Testing Test Results Negative Urine Dip Bedside Urine Glucose Negative Bedside Urine Bilirubin - Negative Bedside Urine Ketone +/- 5 Urine Specific [place] 1.025 Bedside Urine Occult Blood - Negative Bedside Urine pH 5.5 Bedside Urine Protein - Negative Bedside Urine Urobilinogen - Negative Bedside Urine Nitrite - Negative Bedside Urine Leukocytes - Negative Esterase Imaging Data CT scan - abdomen/pelvis: Radiologist's Impression: Close Abdomen/Pelvis CT (Signed) Tiffanie Andino - 10/29/23 Launch?[place] [id number] CT Scan Report Signed Patient: Brianna Madden MR#: [id number] : 1985 Acct:[id number] Age/Sex: 38 / F Date of Service: 10/29/23 Loc: ED Accession Number: [id number] Procedure: CT abdomen pelvis w con Ordering Provider: Liseth Lanza D.O. PROCEDURE: CT ABDOMEN PELVIS W CON INDICATIONS: RLQ pain w palp, buttocks wraps around to groin,no hernia TECHNIQUE: After the administration of intravenous contrast, axial sections acquired from the lung bases to the pubic symphysis. Coronal and sagittal reformats were performed. For radiation dose reduction, the following was used: automated exposure control, adjustment of mA and/or kV according to patient size. COMPARISON: None. FINDINGS: Image quality: Diagnostic. Lower Chest: No significant findings. ABDOMEN: Liver: No solid mass. Gallbladder: No radiopaque gallstones or wall thickening. Biliary ducts: No biliary dilation. Pancreas: No ductal dilation. Spleen: Size is within normal limits. Adrenal Glands: No adrenal nodules. Kidneys and Ureters: No hydronephrosis. No solid mass. No complex renal cystic lesion which requires follow up. Stomach and Bowel: Normal colonic caliber, without significant wall thickening. Normal appendix. Peritoneum: No abnormal intraperitoneal fluid. No free air. Ventral Wall: No hernia. Abdominal Nodes: No retroperitoneal or mesenteric adenopathy by size criteria. Vessels: Aorta and inferior vena cava are normal in size. PELVIS: Pelvic Organs: Unremarkable. Bladder: Unremarkable. Pelvic Nodes: No enlarged lymph nodes. Miscellaneous: No inguinal hernias are seen. Bones: No aggressive osseous abnormality. IMPRESSION: 1. No acute process. 2. Normal appendix. Dictated by: Tiffanie Andino M.D. on 10/29/2023 at 14:43 Approved by: Tiffanie Andino M.D. on 10/29/2023 at 14:45 US - CERTIFIED CONTROL SYSTEMS TECHNICIAN: Radiologist's Impression: COMPLEX LIST OVARIAN CYST MEASURING 2 ANYONE MM OTHERWISE NORMAL OVARIES WITH NORMAL LIMITS INTACT FLOW, NO PATHOLOGIC FREE FLUID OR PELVIC FLUID. Report did not populate in EMR but was texted via secure phone by radiology. ECG Data Attestation: I personally reviewed and interpreted this ECG as follows: Prior ECG tracings: available for review Interpretation: Sinus rhythm rate of 63 WV 154 QRS 86 QTC of 421. No acute ST elevation depression noted. Patient has prior from 08/04/2023 which appears similar. MDM Narrative Medical decision making narrative: 38-year-old female with new right lower buttock SI region pain radiating around her right groin and tender in her right lower quadrant on examination also a little bit in the left. Patient states symptoms are little bit relieved when she has bowel movements or urination in terms of pressure but does not resolve the pain. Has been slowly worsening since last . No fevers chills but has had nausea. Has had normal bowel movements. Patient has not had similar symptoms past. No recent vaginal bleeding or discharge. Labs do not show any acute has clearly. Serum is negative, urine does not show any obvious signs of infection or blood. Patient on patient's exam findings suspect possible appendicitis, colitis, hernia, ovarian cyst, potentially kidney stones or possibly musculoskeletal source. CBC shows no acute change normal white count, hemoglobin and platelets. Eosinophils are slightly low at 1.2 chemistries negative with normal renal function LFTs. Serum is negative. Point of care urine shows +negative ketones no nitrates no leuks. EKG shows normal sinus rhythm, low voltage. Patient had some improvement in pain with Toradol and nausea with Zofran. Is still quite uncomfortable. We will give additional dose of pain medication. CT abdomen pelvis is negative for acute process, normal appendix. Discussed with patient she does have tenderness in the right lower quadrant and do not feel a palpable mass but discussed pelvic ultrasound to rule torsion. If this is negative would suspect more musculoskeletal source. Pelvic US-shows complex left cyst that is 21 mm. No free fluid. No other acute change on the right. Does have flow to ovaries. Discussed findings with patient, need for follow up with OBGYN for repeat ultrasound and re-evaluation. On re-examination she is much more comfortable. Suspect patient maybe has more of a musculoskeletal source of her symptoms. Patient and I discussed need for follow-up signs and symptoms to watch. Discharge Plan Departure Patient Disposition: Home Clinical Impression: Acute right-sided low back pain, Complex cyst of left ovary Activity Restrictions/Additional Instructions: Your workup today did find a left complex ovarian cyst measuring 21 mm. I do recommend you follow up with OBGYN to make sure that this resolves with repeat imaging typically in 6-8 weeks. Contact information is included below. Please call to set up an appointment. You may take Tylenol up to a 1000 mg every 6 hours and/or ibuprofen up to 600 mg every 6 hours. If in adequate you can take narcotic pain medication 1 tablet every 6 hours as needed. This medication can make you sleepy do not drive, perform hazardous activities or make any major decisions while taking it. This medication will make you constipated please take a stool softener once to twice daily until stools are soft and regular. Prescription sent to [facility]. Please return for fevers, rapidly worsening pain, new rash or skin changes or small blisters on the right back or, persistent vomiting, lightheadedness or passing out, loss of bowel or bladder control, new weakness, loss of sensation or extremity or other new or concerning changes. Prescriptions: New oxycodone 5 mg tablet 5 mg PO Q6H PRN (Reason: pain) Qty: 14 0RF No Action azithromycin 250 mg tablet See Rx Instructions PO .COMPLEX Qty: 6 0RF Rx Instructions: take 500 mg today (day 1), then 250 mg for 4 days (days 2-5) PO benzonatate 100 mg capsule 100 mg PO TID PRN (Reason: cough) Qty: 30 0RF clonazepam 1 mg tablet See Rx Instructions .ROUTE .COMPLEX Qty: 14 0RF Dose Instruction: TAKE 1 TABLET BY MOUTH DAILY Rx Instructions: TAKE 1 TABLET BY MOUTH DAILY hydroxyzine HCl 10 mg tablet See Rx Instructions .ROUTE .COMPLEX Qty: 60 0RF Dose Instruction: TAKE 1 TABLET BY MOUTH THREE TIMES DAILY NEEDED FOR ANXIETY Rx Instructions: TAKE 1 TABLET BY MOUTH THREE TIMES DAILY NEEDED FOR ANXIETY escitalopram oxalate 10 mg tablet See Rx Instructions .ROUTE .COMPLEX Qty: 90 3RF Dose Instruction: TAKE 1 TABLET BY MOUTH DAILY Rx Instructions: TAKE 1 TABLET BY MOUTH DAILY albuterol sulfate 90 mcg/actuation HFA aerosol inhaler See Rx Instructions .ROUTE .COMPLEX Qty: 8.5 1RF Dose Instruction: INHALE 2 PUFFS INTO THE LUNGS EVERY 4 TO 6 HOURS NEEDED FOR BRONCHOSPASM Rx Instructions: INHALE 2 PUFFS INTO THE LUNGS EVERY 4 TO 6 HOURS NEEDED FOR BRONCHOSPASM pantoprazole 40 mg tablet,delayed release (DR/EC) 40 mg PO DAILY Qty: 30 0RF trazodone 50 mg tablet See Rx Instructions PO BEDTIME PRN (Reason: sleep) Qty: 60 0RF Rx Instructions: bedtime PRN; 1-2 tabs PO lidocaine 5 % ointment 1 applic topical DAILY PRN (Reason: pain) Qty: 30 1RF baclofen 20 mg tablet 20 mg PO TID Qty: 20 0RF ibuprofen 800 mg tablet 800 mg PO TID PRN (Reason: pain) Qty: 20 0RF alum-mag hydroxide-simeth [Maalox Advanced] 200-200-20 mg/5 mL suspension 10 ml PO QID PRN (Reason: dyspepsia) Qty: 3000 0RF Rx Instructions: administer between meals and at bedtime as needed sucralfate [Carafate] 100 mg/mL suspension 10 ml PO QID PRN (Reason: indigestion ) Qty: 420 0RF Rx Instructions: swish in mouth and swallow; use after food/drink Referrals: Sailaja Zapien MD [Physician] - Juan Finley DO [Primary Care Provider] - Stand Alone Forms: Patient Portal/API
--- NOTE | 2023-10-29 13:49 | DI.CT.S_ITS ---
PROCEDURE: CT ABDOMEN PELVIS W CON INDICATIONS: RLQ pain w palp, buttocks wraps around to groin,no hernia TECHNIQUE: After the administration of intravenous contrast, axial sections acquired from the lung bases to the pubic symphysis. Coronal and sagittal reformats were performed. For radiation dose reduction, the following was used: automated exposure control, adjustment of mA and/or kV according to patient size. COMPARISON: None. FINDINGS: Image quality: Diagnostic. Lower Chest: No significant findings. ABDOMEN: Liver: No solid mass. Gallbladder: No radiopaque gallstones or wall thickening. Biliary ducts: No biliary dilation. Pancreas: No ductal dilation. Spleen: Size is within normal limits. Adrenal Glands: No adrenal nodules. Kidneys and Ureters: No hydronephrosis. No solid mass. No complex renal cystic lesion which requires follow up. Stomach and Bowel: Normal colonic caliber, without significant wall thickening. Normal appendix. Peritoneum: No abnormal intraperitoneal fluid. No free air. Ventral Wall: No hernia. Abdominal Nodes: No retroperitoneal or mesenteric adenopathy by size criteria. Vessels: Aorta and inferior vena cava are normal in size. PELVIS: Pelvic Organs: Unremarkable. Bladder: Unremarkable. Pelvic Nodes: No enlarged lymph nodes. Miscellaneous: No inguinal hernias are seen. Bones: No aggressive osseous abnormality. IMPRESSION: 1. No acute process. 2. Normal appendix. Dictated by: Tiffanie Andino M.D. on 10/29/2023 at 14:43 Approved by: Tiffanie Andino M.D. on 10/29/2023 at 14:45
[2023-10-29] MEDS: MORPHINE 4 MG/ML INJ IV ×2 (14:06→17:00)
[2023-10-29] MEDS: SODIUM CHLORIDE 0.9% 1,000 ML 1000 ML IV (14:07)
--- NOTE | 2023-10-29 15:03 | DI.US.S_ITS ---
PROCEDURE: US PELVIC COMPLETE INDICATIONS: RLQ pelvic/back pain TECHNIQUE: Real-time scanning was performed of the pelvic organs, with image documentation. Additional endovaginal scanning was necessary due to incomplete visualization of the adnexal and endometrial structures by transabdominal scanning. COMPARISON: None. FINDINGS: Uterus: Uterus is anteverted and normal in size at 8.3 x 4.4 x 6.4 cm. The myometrium is homogeneous. The endometrium measures 15 mm combined thickness. No focal uterine mass Ovaries: Complex left ovarian cyst measuring 21 mm. Ovaries otherwise within normal limits with intact flow. Other: No pathologic free abdominal or pelvic fluid. IMPRESSION: No acute process. We strive to produce accurate, complete, and clear reports of imaging services. To assist us in improving patient care, this report was composed using standard report templates and voice recognition software. Therefore, it may contain abnormal punctuation, insertions and/or omissions. Occasional wrong-word or sound-alike substitutions may occur. Though we review the report and make efforts to correct it, we do recommend that the report be read carefully in proper context to recognize any text inaccuracies. Dictated by: Tiffanie Andino M.D. on 10/29/2023 at 16:43 Approved by: Tiffanie Andino M.D. on 10/29/2023 at 16:44
== END 2023-10-29 18:30 | disposition home or self-care (01) ==
PROVIDERS: Emergency Provider Emergency Medicine; PCP Family Medicine
DX: M54.50 Low back pain, unspecified (principal); N83.202 Unspecified ovarian cyst, left side
CPT/HCPCS: 36415; 74177; 76830; 76856; 80053; 81003; 81025; 83690; 84703; 85025; 93005; 93975; 96361; 96374; 96375; 96376; 99284; J1885; J2270; J2405

== ENCOUNTER 2024-12-27 09:16 | Emergency (ER) | payer OTHER, SELFPAY ==
[2024-12-27 09:18] VITALS: BP 154/88; PULSE 82; RESP 16; TEMP 36.9; O2SAT 96; BMI 30.9
--- NOTE | 2024-12-27 09:27 | EKG_ITS ---
[address] [address] Test Date: 2024-12-27 Pat Name: Brianna Madden Department: [facility] Room: Gender: Female Digital Librarian: LINWOOD : 1985 Requested By: Order Number: [id number] Reading MD: Bethel Yang MD Measurements Intervals [place] Rate: 78 P: 59 CT: 152 QRS: 1 QRSD: 84 T: 19 QT: 370 QTc: 421 Interpretive Statements Normal sinus rhythm Low voltage QRS Electronically Signed On 12-28-2024 8:50:45 PDT by Bethel Yang MD
--- NOTE | 2024-12-27 09:28 | ED_ITS ---
HPI - General Adult General Chief complaint: Dizziness Stated complaint: Lightheaded/tired/congestion/x 2 days Time Seen by Provider: 12/27/24 09:27 Source: patient, RN notes reviewed and old records reviewed Limitations: no limitations History of Present Illness HPI narrative: 39-year-old female history of anxiety who presents with complaint of recent upper respiratory congestion which has actually been improving over the last 5 days. She has had 1 fever about 100 F but none persisting. Denies any chest pain has felt like her asthma is maybe kicking up but has been using bronch aid which has been helpful. She states it does not feel tight or wheezy. She was little bit of a cough which has been nonproductive. She was had palpitations in her chest. And a whooshing sensation. Patient states she has had some nausea but no vomiting. Had some diarrhea with the beginning of the week that is improved. States she has been drinking more water so she has been having little bit more urinary frequency but denies dysuria or sense of urgency. No syncope. Patient notes that while were evaluating her that she was having a panic attack and feeling tingling shaky and sweaty she states she does get these she finds putting ice on her chest is helpful. She used to be on Lexapro and has followed with her physician regularly. She was now off this medication states she has been using breathing exercises, OMT and other interventions to help. She does note she was had increased stress recently with her family her mom at age 40 of a heart attack and her brother was diagnosed with vasculitis recently in his in his 30s. Denies any surgeries. Allergic to penicillin and Bactrim. Does use tobacco daily about 10 cigarettes. No alcohol, uses marijuana no recreational drugs. Dr. Finley is her primary care physician. Patient notes overall she has been feeling improved but felt a lot worse this morning which prompted her to come to be evaluated. Related Data Previous Rx's Medication Instructions Recorded sucralfate 100 mg/mL oral 10 ml PO QID PRN indigestion #420 02/21/20 suspension (Carafate) mL clonazepam 1 mg tablet See Rx Instructions .Route 01/25/21 .COMPLEX #14 tabs hydroxyzine HCl 10 mg tablet See Rx Instructions .Route 02/10/21 .COMPLEX #60 tabs trazodone 50 mg tablet See Rx Instructions PO BEDTIME PRN 03/18/21 sleep #60 tabs lidocaine 5 % topical ointment 1 applic topical DAILY PRN pain 01/30/22 #30 grams ibuprofen 800 mg tablet 800 mg PO TID PRN pain #20 tabs 07/29/22 aluminum-mag hydroxide-simethicone 10 ml PO QID PRN dyspepsia #3,000 08/04/23 200 mg-200 mg-20 mg/5 mL oral susp mL (Maalox Advanced) albuterol sulfate 90 mcg/actuation See Rx Instructions .Route 08/17/23 aerosol inhaler .COMPLEX #8.5 grams pantoprazole 40 mg tablet,delayed 40 mg PO DAILY #30 tabs 09/12/23 release oxycodone 5 mg tablet 5 mg PO Q6H PRN pain #14 tabs 10/29/23 benzonatate 200 mg capsule 200 mg PO BID PRN cough #28 caps 02/16/24 albuterol sulfate 90 mcg/actuation 2 puff PO Q6H PRN for wheezing 03/10/24 aerosol inhaler #6.7 grams escitalopram oxalate 10 mg tablet See Rx Instructions .Route 04/04/24 .COMPLEX #30 tabs Allergies Allergy/AdvReac Type Severity Reaction Status Date / Time Penicillins Allergy Severe Anaphylaxis Verified 12/27/24 09:28 buspirone AdvReac Intermediate Nausea, Verified 12/27/24 09:28 shakey, dizziness, headaches, numbness in hands Citalopram Analogues AdvReac Mild flat affect Verified 12/27/24 09:28 Review of Systems Review of Systems ROS Unobtainable: All systems reviewed & are unremarkable except as noted in HPI and below Patient History Medical History Medication side effects Hair loss Ataxia Hand weakness Tremor of both hands Paresthesia of both legs Leg weakness, bilateral Acute right-sided low back pain with bilateral sciatica Subungual hematoma Injury, thumb Well female exam with routine gynecological exam Insomnia disorder with non-sleep disorder mental comorbidity Segmental and somatic dysfunction of rib cage Crepitus of left TMJ on opening of jaw Guyon syndrome Stressful life event affecting family Caffeine abuse Generalized pruritus Musculoskeletal disorder involving masseter Body posture problem Segmental and somatic dysfunction of abdomen and other regions Sacral region somatic dysfunction Pelvic somatic dysfunction Lumbar region somatic dysfunction Thoracic region somatic dysfunction Cervical somatic dysfunction Cranial somatic dysfunction Chronic tension headaches Chronic back pain Chronic neck pain Generalized anxiety disorder with panic attacks History of live (~11/12/17) Chicken pox Elevated lipoprotein A level Panic disorder Family history of cardiovascular disease Family History Mother History of heart attack History of heart disease Hyperlipidemia Hypertension Fatty liver Brother Anxiety History of bipolar disorder History of heart disease Hyperlipidemia Mental health problem Fatty liver Sister Anxiety Depression Mental health problem Grandfather Hwang's syndrome Grandmother Cancer Social History Smoking Status: Current every day smoker Tobacco: How many years used: 20 quit status: considering quitting second hand exposure: Yes (my also smokes.) alcohol intake: former substance use type: marijuana Smoking Status: Current every day smoker alcohol intake frequency: 0-2 drinks per day Exam Narrative Exam Narrative: GEN: well nourished, well appearing female, alert and oriented x 3, patient appears to be in mild distress. HEENT: Atraumatic, pupils are equal round reactive to light, extraocular movements are intact, nares are clear, TMs are clear with no fluid, there is no conjunctival pallor. Throat is clear without any exudates, erythema, tonsillar enlargement or uvular deviation, no facial droop HEART: Regular rate and rhythm without murmur, clicks, rubs. Pulses are equal in upper and lower extremities LUNGS:Lungs clear to auscultation, no wheezes, rales, crackles, chest moves symmetrically ABD:bowel sounds normal, soft, non-tender, no guarding, rebound, rigidity, no masses noted, no hepatosplenomegaly :No CVA tenderness MSCL: Non-tender, no muscle atrophy, muscles strength 5/5 upper and lower extremities, full range of motion. NEURO:CN 2-12 intact, sensation normal SKIN: No rash, erythema or other skin changes. Initial Vital Signs Initial Vital Signs: Vital Signs Temperature 98.4 F 12/27/24 09:18 Pulse Rate 82 12/27/24 09:18 Respiratory Rate 16 12/27/24 09:18 Blood Pressure 154/88 H 12/27/24 09:18 Pulse Oximetry 96 12/27/24 09:18 Oxygen Delivery Method Room Air 12/27/24 09:18 Course Orders Ordered: Discontinued Medications Lorazepam (Lorazepam 0.5 Mg Tablet) 1 mg PO NOW ONE Stop: 12/27/24 10:17 Last Admin: 12/27/24 10:36 Dose: 1 mg Documented By: ALEJANDRA Vital Signs Vital signs: Vital Signs - 8 hr 12/27/24 09:18 12/27/24 09:39 12/27/24 10:00 Temperature 98.4 F Pulse Rate 82 85 79 Respiratory Rate 16 Blood Pressure 154/88 H Pulse Oximetry 96 98 98 Oxygen Delivery Method Room Air 12/27/24 10:29 12/27/24 10:29 12/27/24 10:30 Temperature Pulse Rate 68 Respiratory Rate 15 Blood Pressure 137/72 124/73 Pulse Oximetry 96 Oxygen Delivery Method 12/27/24 10:30 12/27/24 11:00 12/27/24 11:00 Temperature Pulse Rate 68 66 Respiratory Rate 16 14 Blood Pressure 116/67 Pulse Oximetry 97 93 Oxygen Delivery Method Medical Decision Making Lab Data 12/27/24 09:57 12/27/24 09:57 Labs: Lab Results 12/27/24 Range/Units 09:57 WBC 7.4 (4.5-11.0) X10^3/uL RBC 4.62 (4.0-5.2) X10^6/uL Hgb 15.0 (12.0-16.0) g/dL Hct 43.1 (36-46) % MCV 93.3 (80-100) fL MCH 32.4 (26-34) PG MCHC 34.7 (30-36) % RDW 12.9 (11.6-14.8) % Plt Count 237 (150-400) X10^3/uL Neut % (Auto) 53.7 (50-75) % Lymph % (Auto) 35.5 (25-40) % Emanuel % (Auto) 8.6 (3-14) % Eos % (Auto) 1.4 L (2-4) % Baso % (Auto) 0.8 (0-2) % Neut # (Auto) 4000 (3270-1837) /uL Lymph # (Auto) 2600 (1519-9493) /uL Emanuel # (Auto) 600 (0-900) /uL Eos # (Auto) 100 (0-450) /uL Baso # (Auto) 100 (0-100) /uL D-Dimer < 215 (<500) ng/ml Sodium 139 (137-145) mmol/L Potassium 4.3 (3.4-5.1) mmol/L Chloride 106 (98-107) mmol/L Carbon Dioxide 24 (22-32) mmol/L BUN 9 (7-17) mg/dL Creatinine 0.79 (0.52-1.04) mg/dL Estimated GFR > 60 (>60) mL/min BUN/Creatinine Ratio 11.4 (6-22) Glucose 102 H (70-100) mg/dL Calcium 10.1 (8.4-10.2) mg/dL Total Bilirubin 0.5 (0.2-1.3) mg/dL AST 27 (14-36) IU/L ALT 23 (<35) IU/L Alkaline Phosphatase 75 (38-126) U/L Total Creatine Kinase 71 (30-135) U/L Troponin I < 0.012 (0.01-0.034) ng/mL Total Protein 7.9 (6.3-8.2) g/dL Albumin 4.7 (3.5-5.0) g/dL Globulin 3.2 (1.7-4.1) g/dL Albumin/Globulin Ratio 1.5 (1.0-2.8) Lipase 53 (23-300) U/L ECG Data Attestation: I personally reviewed and interpreted this ECG as follows: Prior ECG tracings: available for review Interpretation: Sinus rhythm rate of 78 IN 152 QRS 84 QTC of [address] elevation depression noted. Patient was prior from 10/29/2023 with no changes. MDM Narrative Medical decision making narrative: 39-year-old female who comes in with complaint of recent upper respiratory infection did not defers COVID/influenza/RSV but noticed some increased shortness of breath lightheadedness she notes she feels very anxious. She does have a history of asthma but no wheeze, she got very anxious had a panic attack she states here she actually improved we were talking she does express a lot of anxiety as her mom of heart is VIII 40 and her brother was recently diagnosed with vasculitis. She notes some palpitations and shortness of breath sensation lungs are clear on examination. Labs show normal CBC, low eosinophils. D-dimer is negative at less than 215, electrolytes, BUN and creatinine are appropriate glucose is 102 troponins less than 0.012 with normal LFTs and a lipase of 53. EKG shows sinus rhythm has prior from 10/29/2023 which appears similar Chest x-ray shows no acute change Patient has a appropriate vitals overall here in the department. She was feeling very anxious intermittently so did give her a dose of p.o. Ativan in the department. On recheck at 11:06 a.m. patient is continuing to feel improved reviewed her findings from today, vitals have continued to be overall appropriate patient is felt appropriate for discharge home. Discussed return precautions all questions answered I did not recommend that she follow up with primary care as well. Discharge Plan Departure Patient Disposition: Home Clinical Impression: Light-headedness Activity Restrictions/Additional Instructions: Please follow up for recheck if your symptoms are continuing. Please return for severe headaches, fevers, new chest pain or shortness of breath, persistent vomiting, black or bloody stools no abdominal back or flank pain, passing out or other new or concerning changes. Prescriptions: No Action benzonatate 200 mg capsule 200 mg PO BID PRN (Reason: cough) Qty: 28 0RF clonazepam 1 mg tablet See Rx Instructions .ROUTE .COMPLEX Qty: 14 0RF Dose Instruction: TAKE 1 TABLET BY MOUTH DAILY Rx Instructions: TAKE 1 TABLET BY MOUTH DAILY hydroxyzine HCl 10 mg tablet See Rx Instructions .ROUTE .COMPLEX Qty: 60 0RF Dose Instruction: TAKE 1 TABLET BY MOUTH THREE TIMES DAILY NEEDED FOR ANXIETY Rx Instructions: TAKE 1 TABLET BY MOUTH THREE TIMES DAILY NEEDED FOR ANXIETY albuterol sulfate 90 mcg/actuation HFA aerosol inhaler See Rx Instructions .ROUTE .COMPLEX Qty: 8.5 1RF Dose Instruction: INHALE 2 PUFFS INTO THE LUNGS EVERY 4 TO 6 HOURS NEEDED FOR BRONCHOSPASM Rx Instructions: INHALE 2 PUFFS INTO THE LUNGS EVERY 4 TO 6 HOURS NEEDED FOR BRONCHOSPASM pantoprazole 40 mg tablet,delayed release (DR/EC) 40 mg PO DAILY Qty: 30 0RF albuterol sulfate 90 mcg/actuation HFA aerosol inhaler 2 puff PO Q6H PRN (Reason: for wheezing) Qty: 6.7 5RF escitalopram oxalate 10 mg tablet See Rx Instructions .ROUTE .COMPLEX Qty: 30 0RF Dose Instruction: TAKE 1 TABLET BY MOUTH DAILY Rx Instructions: TAKE 1 TABLET BY MOUTH DAILY/ PT WILL NEED TO BE SEEN BEFORE NEXT RENEWAL WITH PCP 01/28/24 trazodone 50 mg tablet See Rx Instructions PO BEDTIME PRN (Reason: sleep) Qty: 60 0RF Rx Instructions: bedtime PRN; 1-2 tabs PO lidocaine 5 % ointment 1 applic topical DAILY PRN (Reason: pain) Qty: 30 1RF ibuprofen 800 mg tablet 800 mg PO TID PRN (Reason: pain) Qty: 20 0RF alum-mag hydroxide-simeth [Maalox Advanced] 200-200-20 mg/5 mL suspension 10 ml PO QID PRN (Reason: dyspepsia) Qty: 3000 0RF Rx Instructions: administer between meals and at bedtime as needed oxycodone 5 mg tablet 5 mg PO Q6H PRN (Reason: pain) Qty: 14 0RF sucralfate [Carafate] 100 mg/mL suspension 10 ml PO QID PRN (Reason: indigestion ) Qty: 420 0RF Rx Instructions: swish in mouth and swallow; use after food/drink Referrals: Juan Finley DO [Primary Care Provider] - Stand Alone Forms: Patient Portal/API/Survey
[2024-12-27 09:39] VITALS: PULSE 85; O2SAT 98
--- NOTE | 2024-12-27 09:47 | DI.RAD.S_ITS ---
PROCEDURE: XR CHEST 1V INDICATIONS: Short of breath, palpitations TECHNIQUE: One view of the chest was acquired. COMPARISON: [facility], CR, XR CHEST 1V, 02/21/2020, 10:29. FINDINGS: Surgical changes and devices: None. Lungs and pleura: Lungs are clear. No pleural effusions or pneumothorax. Mediastinum: Mediastinal contours appear normal. Heart size is normal. Bones and chest wall: No suspicious bony lesions. Overlying soft tissues appear unremarkable. IMPRESSION: Unremarkable portable chest. Dictated by: Nba Silveira M.D. on 12/27/2024 at 9:08 Approved by: Nba Silveira M.D. on 12/27/2024 at 9:09
[2024-12-27 10:00] VITALS: PULSE 79; O2SAT 98
[2024-12-27 10:05] LABS: Add Manual Diff / Slide Review NO; Basophils Absolute Auto 100 /uL (0-100); Basophils Percent Auto 0.8 % (0-2); Eosinophils Absolute Auto 100 /uL (0-450); Eosinophils Percent Auto 1.4 % (2-4); Hematocrit 43.1 % (36-46); Lymphocytes Absolute Auto 2600 /uL (1100-4500); Lymphocytes Percent Auto 35.5 % (25-40); Mean Corpuscular HGB Conc 34.7 % (30-36); Mean Corpuscular Hemoglobin 32.4 PG (26-34); Mean Corpuscular Volume 93.3 fL (80-100); Monocytes Absolute Auto 600 /uL (0-900); Monocytes Percent Auto 8.6 % (3-14); Neutrophils Absolute Auto 4000 /uL (1500-7000); Neutrophils Percent Auto 53.7 % (50-75); Platelet Count 237 X10^3/uL (150-400); Red Blood Cell Count 4.62 X10^6/uL (4.0-5.2); Red Cell Distribution Width 12.9 % (11.6-14.8); White Blood Cell Count 7.4 X10^3/uL (4.5-11.0)
[2024-12-27 10:29] VITALS: BP 137/72; PULSE 68; RESP 15; O2SAT 96
[2024-12-27 10:30] VITALS: BP 124/73; PULSE 68; RESP 16; O2SAT 97
[2024-12-27 10:32] LABS: Alanine Aminotransferase 23 IU/L (<35); Albumin 4.7 g/dL (3.5-5.0); Albumin Globulin Ratio 1.5 (1.0-2.8); Alkaline Phosphatase 75 U/L (38-126); Aspartate Aminotransferase 27 IU/L (14-36); BUN Creatinine Ratio 11.4 (6-22); Bilirubin Total 0.5 mg/dL (0.2-1.3); Blood Urea Nitrogen 9 mg/dL (7-17); Calcium 10.1 mg/dL (8.4-10.2); Carbon Dioxide 24 mmol/L (22-32); Chloride 106 mmol/L (98-107); Creatine Kinase 71 U/L (30-135); Estimated Glomerular Filt Rate > 60 mL/min (>60); Globulin 3.2 g/dL (1.7-4.1); Glucose 102 mg/dL (70-100); HEMOLYSIS < 15 (0-50); Lipase 53 U/L (23-300); Potassium 4.3 mmol/L (3.4-5.1); Sodium 139 mmol/L (137-145); Total Protein 7.9 g/dL (6.3-8.2)
[2024-12-27] MEDS: LORazepam 0.5 MG TABLET 1 MG PO (10:36)
[2024-12-27 10:40] LABS: D Dimer < 215 ng/ml (<500)
[2024-12-27 10:44] LABS: Troponin I < 0.012 ng/mL (0.01-0.034)
[2024-12-27 11:00] VITALS: BP 116/67; PULSE 66; RESP 14; O2SAT 93
== END 2024-12-27 11:17 | disposition home or self-care (01) ==
PROVIDERS: Emergency Provider Emergency Medicine; PCP Family Medicine
DX: R42 Dizziness and giddiness (principal); R06.02 Shortness of breath; F41.9 Anxiety disorder, unspecified
CPT/HCPCS: 36415; 71045; 80053; 82550; 83690; 84484; 85025; 85379; 93005; 93010; 99284

== ENCOUNTER 2024-12-29 08:58 | Emergency (ER) | payer OTHER, SELFPAY ==
[2024-12-29] VITALS (13 sets, daily range): BP systolic 113–184; BP diastolic 61–96; PULSE 64–84; RESP 12–19; TEMP 36.3; O2SAT 93–99; BMI 30.9
--- NOTE | 2024-12-29 09:17 | DI.RAD.S_ITS ---
PROCEDURE: XR CHEST 1V INDICATIONS: chest pain TECHNIQUE: One view of the chest was acquired. COMPARISON: [facility], CANDE, XR CHEST 1V, 12/27/2024, 9:45. [facility], CR, XR CHEST 1V, 02/21/2020, 10:29. FINDINGS AND IMPRESSION: No airspace consolidation or pleural effusion on this single view study. Normal heart size. Unremarkable osseous structures. Dictated by: Howard Felix M.D. on 12/29/2024 at 9:47 Approved by: Howard Felix M.D. on 12/29/2024 at 9:48
--- NOTE | 2024-12-29 09:17 | EKG_ITS ---
[address] [id number] Test Date: 2024-12-29 Pat Name: Brianna Madden Department: Room: Gender: Female Model [employer]er: SUZETTE : 1985 Requested By: Order Number: [id number] Reading MD: Modesto Burciaga Measurements Intervals [place] Rate: 82 P: 74 ND: 142 QRS: 4 QRSD: 82 T: 23 QT: 382 QTc: 446 Interpretive Statements Normal sinus rhythm Electronically Signed On 12-29-2024 15:49:36 PDT by Modesto Burciaga
[2024-12-29 09:31] LABS: Add Manual Diff / Slide Review NO; Basophils Absolute Auto 100 /uL (0-100); Basophils Percent Auto 0.7 % (0-2); Eosinophils Absolute Auto 0 /uL (0-450); Eosinophils Percent Auto 0.5 % (2-4); Hematocrit 43.2 % (36-46); Hemoglobin 14.8 g/dL (12.0-16.0); Lymphocytes Absolute Auto 2100 /uL (1100-4500); Lymphocytes Percent Auto 24.3 % (25-40); Mean Corpuscular HGB Conc 34.2 % (30-36); Mean Corpuscular Volume 93.7 fL (80-100); Monocytes Absolute Auto 600 /uL (0-900); Monocytes Percent Auto 6.7 % (3-14); Neutrophils Absolute Auto 5800 /uL (1500-7000); Neutrophils Percent Auto 67.8 % (50-75); Platelet Count 240 X10^3/uL (150-400); Red Blood Cell Count 4.61 X10^6/uL (4.0-5.2); White Blood Cell Count 8.6 X10^3/uL (4.5-11.0)
[2024-12-29] MEDS: SODIUM CHLORIDE 0.9% 1,000 ML 1000 ML IV (09:33)
[2024-12-29 09:39] LABS: Alanine Aminotransferase 23 IU/L (<35); Albumin 4.6 g/dL (3.5-5.0); Albumin Globulin Ratio 1.5 (1.0-2.8); Alkaline Phosphatase 74 U/L (38-126); Aspartate Aminotransferase 28 IU/L (14-36); BUN Creatinine Ratio 21.8 (6-22); Bilirubin Total 0.6 mg/dL (0.2-1.3); Blood Urea Nitrogen 17 mg/dL (7-17); Calcium 9.2 mg/dL (8.4-10.2); Carbon Dioxide 20 mmol/L (22-32); Chloride 104 mmol/L (98-107); Creatine Kinase 61 U/L (30-135); Estimated Glomerular Filt Rate > 60 mL/min (>60); Glucose 115 mg/dL (70-100); HEMOLYSIS < 15 (0-50); Lipase 62 U/L (23-300); Potassium 4.1 mmol/L (3.4-5.1); Sodium 136 mmol/L (137-145); Total Protein 7.6 g/dL (6.3-8.2)
--- NOTE | 2024-12-29 09:42 | ED.DIZZY ---
HPI - Dizziness General Chief Complaint: Dizziness Stated Complaint: Light headed, whole body is shaking , Time Seen by Provider: 12/29/24 09:16 Source: patient and old records reviewed Mode of arrival: Ambulatory Limitations: no limitations History of Present Illness HPI Narrative: 39-year-old female history of anxiety presents with complaint of feeling lightheaded like her whole body is shaky, sinus pressure she describes it really headache but more sinus discomfort. She was seen here on 12/27 complaining of recent upper respiratory congestion which she states has a little bit worse she states she was felt chilled she has not had any fevers. Deferred nasal swab at that time. She states feels like she can not really breathe she was had some palpitation denies chest pain or pressure. She was had occasional nausea but no vomiting. No photophobia. No neck pain. Patient has some mild nausea and vomited water once. Denies any abdominal back or flank pain. Denies any diarrhea or constipation no dysuria urgency or frequency. No new swelling extremities. Patient has not had any new swelling of her extremities. She states this feels similar to when she was here the other day but can not kind of calm it down. She notes that she took trazodone last night which she was taken occasionally in the past to try to help her sleep was woken up about 2:00 a.m. in the morning has been able to get back to sleep. Yesterday she took Lexapro which she used to take but has been off for a year and then took additional dose this morning. Patient states she has not taken any other medications. When I saw her in the room she states now she feels like she has been given something that makes her feel very groggy. She was not had any loss of consciousness. No tonic-clonic movements. She was accompanied by her and aunt. Does not have a family history mother at age 40 and a heart attack brother was diagnosed with vasculitis in his 30. No surgeries, to penicillin and Bactrim. Does use tobacco daily, no alcohol no recreational drugs. Dr. Finley is her primary care physician. Related Data Previous Rx's Medication Instructions Recorded sucralfate 100 mg/mL oral 10 ml PO QID PRN indigestion #420 02/21/20 suspension (Carafate) mL clonazepam 1 mg tablet See Rx Instructions .Route 01/25/21 .COMPLEX #14 tabs hydroxyzine HCl 10 mg tablet See Rx Instructions .Route 02/10/21 .COMPLEX #60 tabs trazodone 50 mg tablet See Rx Instructions PO BEDTIME PRN 03/18/21 sleep #60 tabs lidocaine 5 % topical ointment 1 applic topical DAILY PRN pain 01/30/22 #30 grams ibuprofen 800 mg tablet 800 mg PO TID PRN pain #20 tabs 07/29/22 aluminum-mag hydroxide-simethicone 10 ml PO QID PRN dyspepsia #3,000 08/04/23 200 mg-200 mg-20 mg/5 mL oral susp mL (Maalox Advanced) albuterol sulfate 90 mcg/actuation See Rx Instructions .Route 08/17/23 aerosol inhaler .COMPLEX #8.5 grams pantoprazole 40 mg tablet,delayed 40 mg PO DAILY #30 tabs 09/12/23 release oxycodone 5 mg tablet 5 mg PO Q6H PRN pain #14 tabs 10/29/23 benzonatate 200 mg capsule 200 mg PO BID PRN cough #28 caps 02/16/24 albuterol sulfate 90 mcg/actuation 2 puff PO Q6H PRN for wheezing 03/10/24 aerosol inhaler #6.7 grams escitalopram oxalate 10 mg tablet See Rx Instructions .Route 04/04/24 .COMPLEX #30 tabs Allergies Allergy/AdvReac Type Severity Reaction Status Date / Time Penicillins Allergy Severe Anaphylaxis Verified 12/27/24 09:28 buspirone AdvReac Intermediate Nausea, Verified 12/27/24 09:28 shakey, dizziness, headaches, numbness in hands Citalopram Analogues AdvReac Mild flat affect Verified 12/27/24 09:28 Review of Systems Review of Systems ROS Unobtainable: All systems reviewed & are unremarkable except as noted in HPI and below Patient History Medical History Medication side effects Hair loss Ataxia Hand weakness Tremor of both hands Paresthesia of both legs Leg weakness, bilateral Acute right-sided low back pain with bilateral sciatica Subungual hematoma Injury, thumb Well female exam with routine gynecological exam Insomnia disorder with non-sleep disorder mental comorbidity Segmental and somatic dysfunction of rib cage Crepitus of left TMJ on opening of jaw Guyon syndrome Stressful life event affecting family Caffeine abuse Generalized pruritus Musculoskeletal disorder involving masseter Body posture problem Segmental and somatic dysfunction of abdomen and other regions Sacral region somatic dysfunction Pelvic somatic dysfunction Lumbar region somatic dysfunction Thoracic region somatic dysfunction Cervical somatic dysfunction Cranial somatic dysfunction Chronic tension headaches Chronic back pain Chronic neck pain Generalized anxiety disorder with panic attacks History of live (~11/12/17) Chicken pox Elevated lipoprotein A level Panic disorder Family history of cardiovascular disease Family History Mother History of heart attack History of heart disease Hyperlipidemia Hypertension Fatty liver Brother Anxiety History of bipolar disorder History of heart disease Hyperlipidemia Mental health problem Fatty liver Sister Anxiety Depression Mental health problem Grandfather Hwang's syndrome Grandmother Cancer Social History Smoking Status: Current every day smoker Tobacco: How many years used: 20 quit status: considering quitting second hand exposure: Yes (my also smokes.) alcohol intake: former substance use type: marijuana Smoking Status: Current every day smoker tobacco type: cigarettes alcohol intake frequency: 0-2 drinks per day Exam Narrative Exam Narrative: GEN: Female, alert and oriented x 3, patient appears to be in mild distress. HEENT: Atraumatic, pupils are equal round reactive to light, extraocular movements are intact, no nystagmus, nares are clear, TMs are clear with no fluid, there is no conjunctival pallor. Throat is clear without any exudates, erythema, tonsillar enlargement or uvular deviation, no facial droop, mild sinus pressure HEART: Regular rate and rhythm without murmur, clicks, rubs. No carotid bruits, pulses are equal in upper and lower extremities LUNGS:Lungs clear to auscultation, no wheezes, rales, crackles, chest moves symmetrically ABD:bowel sounds normal, soft, non-tender, no guarding, rebound, rigidity, no masses noted, no hepatosplenomegaly :No CVA tenderness MSCL: Non-tender, no muscle atrophy, muscles strength 5/5 upper and lower extremities, full range of motion, normal gait NEURO:CN 2-12 intact, sensation normal. Normal speech. Initial Vital Signs Initial Vital Signs: Vital Signs Blood Pressure 184/96 H 12/29/24 09:08 Course Orders Ordered: ED Orders 12/29/24 10:08 Test Urine Stat UA Complete [Urinalysis and Microscopic] Stat Urine Drug Screen, Rapid Stat 12/29/24 10:45 CT head/brain wo con Stat 12/29/24 11:11 Covid-19 + FLU A/B + RSV - PCR Stat Discontinued Medications Acetaminophen (Acetaminophen 325 Mg Tablet) 975 mg PO NOW ONE Stop: 12/29/24 09:50 Last Admin: 12/29/24 09:56 Dose: 650 mg Documented By: SAGE Aspirin (Aspirin 81 Mg Chew Tab) 324 mg PO NOW ONE Stop: 12/29/24 09:17 Last Admin: 12/29/24 09:57 Dose: Not Given Documented By: SAGE Sodium Chloride (Normal Saline 0.9%) 1,000 mls @ 1,000 mls/hr IV BOLUS ONE Stop: 12/29/24 10:15 Last Infusion: 12/29/24 10:57 Dose: Infused Documented By: Admin: 12/29/24 09:33 Dose: 1,000 mls/hr Documented By: SAGE Vital Signs Vital signs: Vital Signs - 8 hr 12/29/24 11:07 12/29/24 11:07 12/29/24 11:11 Pulse Rate 68 66 Respiratory Rate 19 13 Blood Pressure 130/77 Pulse Oximetry 97 12/29/24 11:11 12/29/24 11:30 12/29/24 11:30 Pulse Rate 68 Respiratory Rate 17 Blood Pressure 161/72 H 119/66 Pulse Oximetry 96 12/29/24 12:00 12/29/24 12:00 12/29/24 12:30 Pulse Rate 66 67 Respiratory Rate 17 14 Blood Pressure 113/61 Pulse Oximetry 96 98 12/29/24 12:30 Pulse Rate Respiratory Rate Blood Pressure 124/70 Pulse Oximetry MDM - Dizziness Lab Data 12/29/24 09:16 12/29/24 09:16 Labs: Lab Results 12/29/24 12/29/24 12/29/24 Range/Units 09:16 10:08 10:08 WBC 8.6 (4.5-11.0) X10^3/uL RBC 4.61 (4.0-5.2) X10^6/uL Hgb 14.8 (12.0-16.0) g/dL Hct 43.2 (36-46) % MCV 93.7 (80-100) fL MCH 32.0 (26-34) PG MCHC 34.2 (30-36) % RDW 13.0 (11.6-14.8) % Plt Count 240 (150-400) X10^3/uL Neut % (Auto) 67.8 (50-75) % Lymph % (Auto) 24.3 L (25-40) % [place] % (Auto) 6.7 (3-14) % Eos % (Auto) 0.5 L (2-4) % Baso % (Auto) 0.7 (0-2) % Neut # (Auto) 5800 (5138-2500) /uL Lymph # (Auto) 2100 (8262-7042) /uL [place] # (Auto) 600 (0-900) /uL Eos # (Auto) 0 (0-450) /uL Baso # (Auto) 100 (0-100) /uL Sodium 136 L (137-145) mmol/L Potassium 4.1 (3.4-5.1) mmol/L Chloride 104 (98-107) mmol/L Carbon Dioxide 20 L (22-32) mmol/L BUN 17 (7-17) mg/dL Creatinine 0.78 (0.52-1.04) mg/dL Estimated GFR > 60 (>60) mL/min BUN/Creatinine Ratio 21.8 (6-22) Glucose 115 H (70-100) mg/dL Calcium 9.2 (8.4-10.2) mg/dL Total Bilirubin 0.6 (0.2-1.3) mg/dL AST 28 (14-36) IU/L ALT 23 (<35) IU/L Alkaline Phosphatase 74 (38-126) U/L Total Creatine Kinase 61 (30-135) U/L Troponin I < 0.012 (0.01-0.034) ng/mL NT-Pro-B Natriuret Pep < 20 (<125) pg/mL Total Protein 7.6 (6.3-8.2) g/dL Albumin 4.6 (3.5-5.0) g/dL Globulin 3.0 (1.7-4.1) g/dL Albumin/Globulin Ratio 1.5 (1.0-2.8) Lipase 62 (23-300) U/L TSH 0.786 (0.47-4.68) uIU/mL Urine Color Yellow Urine Appearance Clear Urine pH 6.0 Normal (4.5-8.0) Ur Specific [place] <=1.005 (1.000-1.035) Urine Protein Negative (Negative) Urine Glucose (UA) Negative (Negative) g/dL Urine Ketones Negative (NEGATIVE) Urine Occult Blood Negative (Negative) Urine Nitrate Negative (Negative) Urine Bilirubin Negative (NEGATIVE) Urine Urobilinogen 0.2 (0.2) E.U./dL Ur Leukocyte Esterase Negative (NEGATIVE) Urine RBC None seen (0-5/HPF) Urine WBC None seen (0-5/HPF) Ur Squamous Epith Cells None seen (0-5/HPF) Urine Bacteria None seen (None) Ur Culture Indicated? Cult not indicated Vol Urine Centrifuged 10ml (spun) Urine Test Negative (Negative) U Opiates 300ng/mL cut Negative (Negative) Ur Oxycodone Screen Negative (Negative) Urine Methadone Screen Negative (Negative) Ur Barbiturates Screen Negative (Negative) U Tricyclic Antidepress Negative (Negative) Ur Phencyclidine Scrn Negative (Negative) Ur Amphetamines Screen Negative (Negative) U Methamphetamines Scrn Negative (Negative) Ur MDMA Scrn (Ecstasy) Negative (Negative) U Benzodiazepines Scrn Negative (Negative) Urine Cocaine Screen Negative (Negative) U Marijuana (THC) Screen Positive H (Negative) Urine Specific [place] Normal (Normal) Ur Creatinine Normal (Normal) SARS-CoV-2 (PCR) (Negative) Influenza A (RT-PCR) (NEGATIVE) Influenza B (RT-PCR) (NEGATIVE) RSV (PCR) (Negative) 12/29/24 Range/Units 11:11 WBC (4.5-11.0) X10^3/uL RBC (4.0-5.2) X10^6/uL Hgb (12.0-16.0) g/dL Hct (36-46) % MCV (80-100) fL MCH (26-34) PG MCHC (30-36) % RDW (11.6-14.8) % Plt Count (150-400) X10^3/uL Neut % (Auto) (50-75) % Lymph % (Auto) (25-40) % [place] % (Auto) (3-14) % Eos % (Auto) (2-4) % Baso % (Auto) (0-2) % Neut # (Auto) (3937-0804) /uL Lymph # (Auto) (1175-3126) /uL [place] # (Auto) (0-900) /uL Eos # (Auto) (0-450) /uL Baso # (Auto) (0-100) /uL Sodium (137-145) mmol/L Potassium (3.4-5.1) mmol/L Chloride (98-107) mmol/L Carbon Dioxide (22-32) mmol/L BUN (7-17) mg/dL Creatinine (0.52-1.04) mg/dL Estimated GFR (>60) mL/min BUN/Creatinine Ratio (6-22) Glucose (70-100) mg/dL Calcium (8.4-10.2) mg/dL Total Bilirubin (0.2-1.3) mg/dL AST (14-36) IU/L ALT (<35) IU/L Alkaline Phosphatase (38-126) U/L Total Creatine Kinase (30-135) U/L Troponin I (0.01-0.034) ng/mL NT-Pro-B Natriuret Pep (<125) pg/mL Total Protein (6.3-8.2) g/dL Albumin (3.5-5.0) g/dL Globulin (1.7-4.1) g/dL Albumin/Globulin Ratio (1.0-2.8) Lipase (23-300) U/L TSH (0.47-4.68) uIU/mL Urine Color Urine Appearance Urine pH (4.5-8.0) Ur Specific [place] (1.000-1.035) Urine Protein (Negative) Urine Glucose (UA) (Negative) g/dL Urine Ketones (NEGATIVE) Urine Occult Blood (Negative) Urine Nitrate (Negative) Urine Bilirubin (NEGATIVE) Urine Urobilinogen (0.2) E.U./dL Ur Leukocyte Esterase (NEGATIVE) Urine RBC (0-5/HPF) Urine WBC (0-5/HPF) Ur Squamous Epith Cells (0-5/HPF) Urine Bacteria (None) Ur Culture Indicated? Vol Urine Centrifuged Urine Test (Negative) U Opiates 300ng/mL cut (Negative) Ur Oxycodone Screen (Negative) Urine Methadone Screen (Negative) Ur Barbiturates Screen (Negative) U Tricyclic Antidepress (Negative) Ur Phencyclidine Scrn (Negative) Ur Amphetamines Screen (Negative) U Methamphetamines Scrn (Negative) Ur MDMA Scrn (Ecstasy) (Negative) U Benzodiazepines Scrn (Negative) Urine Cocaine Screen (Negative) U Marijuana (THC) Screen (Negative) Urine Specific [place] (Normal) Ur Creatinine (Normal) SARS-CoV-2 (PCR) Negative (Negative) Influenza A (RT-PCR) Flu a negative (NEGATIVE) Influenza B (RT-PCR) Flu b negative (NEGATIVE) RSV (PCR) Negative (Negative) ECG Data Attestation: I personally reviewed and interpreted this ECG as follows: Prior ECG tracings: available for review Interpretation: Sinus rhythm rate 82, NE 142 QRS 82 QTC of 446. Nonspecific change patient has prior from 12/27/2024 that showed sinus rhythm. [facility] Narrative Medical decision making narrative: Sinus rhythm nonspecific change. Normal white count hemoglobin and platelets, sodium is 136 CO2 is 20 electrolytes are otherwise appropriate creatinine 0.78 glucose is 115 LFTs are negative troponin is less than 0.012, BNP is less than 20. TSH 0.786 Chest x-ray no airspace consolidation or pleural effusion, normal heart size. Patient noted some sinus pressure generally feeling unwell, dizziness and lightheadedness head CT shows no acute change. COVID/influenza/RSV is negative Urinalysis is negative. UDS is negative. Patient does request dose of Tylenol here for headache. 39-year-old female returns for multiple symptoms patient vitals here has been appropriate, exam is overall benign. Patient does not feel well but is recommended to follow up with primary care. She noted some increased anxiety recently restarted her Lexapro that she was stopped about a year ago last night took a dose last night as well as this morning as well as took a dose of trazodone last night which he takes occasionally but not daily. Patient does also notes some chills and recent upper respiratory infection so this maybe a component she was nontoxic appearing well-appearing states no headaches more of sinus pressure. She has been afebrile. Discharge Plan Departure Patient Disposition: Home Clinical Impression: Light-headedness Activity Restrictions/Additional Instructions: Please follow up with your physician. Please return for fevers or in the 100.4, severe headaches, persistent vomiting, new chest pain or shortness of breath, new swelling of your extremities, passing out or other new or concerning changes. Prescriptions: No Action benzonatate 200 mg capsule 200 mg PO BID PRN (Reason: cough) Qty: 28 0RF clonazepam 1 mg tablet See Rx Instructions .ROUTE .COMPLEX Qty: 14 0RF Dose Instruction: TAKE 1 TABLET BY MOUTH DAILY Rx Instructions: TAKE 1 TABLET BY MOUTH DAILY hydroxyzine HCl 10 mg tablet See Rx Instructions .ROUTE .COMPLEX Qty: 60 0RF Dose Instruction: TAKE 1 TABLET BY MOUTH THREE TIMES DAILY NEEDED FOR ANXIETY Rx Instructions: TAKE 1 TABLET BY MOUTH THREE TIMES DAILY NEEDED FOR ANXIETY albuterol sulfate 90 mcg/actuation HFA aerosol inhaler See Rx Instructions .ROUTE .COMPLEX Qty: 8.5 1RF Dose Instruction: INHALE 2 PUFFS INTO THE LUNGS EVERY 4 TO 6 HOURS NEEDED FOR BRONCHOSPASM Rx Instructions: INHALE 2 PUFFS INTO THE LUNGS EVERY 4 TO 6 HOURS NEEDED FOR BRONCHOSPASM pantoprazole 40 mg tablet,delayed release (DR/EC) 40 mg PO DAILY Qty: 30 0RF albuterol sulfate 90 mcg/actuation HFA aerosol inhaler 2 puff PO Q6H PRN (Reason: for wheezing) Qty: 6.7 5RF escitalopram oxalate 10 mg tablet See Rx Instructions .ROUTE .COMPLEX Qty: 30 0RF Dose Instruction: TAKE 1 TABLET BY MOUTH DAILY Rx Instructions: TAKE 1 TABLET BY MOUTH DAILY/ PT WILL NEED TO BE SEEN BEFORE NEXT RENEWAL WITH PCP 01/28/24 trazodone 50 mg tablet See Rx Instructions PO BEDTIME PRN (Reason: sleep) Qty: 60 0RF Rx Instructions: bedtime PRN; 1-2 tabs PO lidocaine 5 % ointment 1 applic topical DAILY PRN (Reason: pain) Qty: 30 1RF ibuprofen 800 mg tablet 800 mg PO TID PRN (Reason: pain) Qty: 20 0RF alum-mag hydroxide-simeth [Maalox Advanced] 200-200-20 mg/5 mL suspension 10 ml PO QID PRN (Reason: dyspepsia) Qty: 3000 0RF Rx Instructions: administer between meals and at bedtime as needed oxycodone 5 mg tablet 5 mg PO Q6H PRN (Reason: pain) Qty: 14 0RF sucralfate [Carafate] 100 mg/mL suspension 10 ml PO QID PRN (Reason: indigestion ) Qty: 420 0RF Rx Instructions: swish in mouth and swallow; use after food/drink Referrals: Juan Finley DO [Primary Care Provider] - Stand Alone Forms: Patient Portal/API/Survey
[2024-12-29 09:51] LABS: NT-proBNP (BNP-Adult 18+) < 20 pg/mL (<125); Troponin I < 0.012 ng/mL (0.01-0.034)
[2024-12-29] MEDS: ACETAMINOPHEN 325 MG TABLET 975 MG PO (09:56)
[2024-12-29 10:11] LABS: Thyroid Stimulating Hormone 0.786 uIU/mL (0.47-4.68)
[2024-12-29 10:20] LABS: Ur Creatinine Normal (Normal); Ur Specific Gravity Normal (Normal); Urine Cocaine Negative (Negative); Urine Tetrahydrocannabinol Positive (Negative); Urine pH Normal (Normal)
[2024-12-29 10:21] LABS: UR Morphine/Opiate cutoff 300 Negative (Negative); Urine Amphetamines Negative (Negative); Urine Barbiturates Negative (Negative); Urine Benzodiazepines Negative (Negative); Urine MDMA Negative (Negative); Urine Methadone Negative (Negative); Urine Methamphetamines Negative (Negative); Urine Oxycodone Negative (Negative); Urine Phencyclidine Negative (Negative); Urine Tricyclic Antidepressant Negative (Negative)
--- NOTE | 2024-12-29 10:45 | DI.CT.S_ITS ---
PROCEDURE: CT HEAD/BRAIN WO CON INDICATIONS: steiner, sinus pressure, feels weird and shaky TECHNIQUE: Noncontrast 4.5 mm thick angled axial sections acquired from the foramen magnum to the vertex, with coronal and sagittal reformats. For radiation dose reduction, the following was used: automated exposure control, adjustment of mA and/or kV according to patient size. COMPARISON: None. FINDINGS: Image quality: Diagnostic. CSF spaces: Basal cisterns are patent. No extra-axial fluid collections. Ventricles are normal in size and shape. Brain: No midline shift. No intracranial masses or hemorrhage. [place]-white matter interface is normal. Skull and face: Calvarium and visualized facial bones are intact, without suspicious lesions. Sinuses: Visualized sinuses and mastoids are clear. IMPRESSION: No acute intracranial pathology. Dictated by: Rohan Sanchez M.D. on 12/29/2024 at 11:17 Approved by: Rohan Sanchez M.D. on 12/29/2024 at 11:19
[2024-12-29 10:53] LABS: Appearance Urine UA CLEAR; Bilirubin Urine UA NEGATIVE (NEGATIVE); Color Urine UA YELLOW; Glucose Urine UA NEGATIVE (Negative); Ketones Urine UA NEGATIVE (NEGATIVE); Leukocyte Esterase Urine UA NEGATIVE (NEGATIVE); Nitrite Urine UA NEGATIVE (Negative); Occult Blood Urine UA NEGATIVE (Negative); Protein Urine UA NEGATIVE (Negative); Specific Gravity Urine UA <=1.005 (1.000-1.035); Urobilinogen Urine UA 0.2 E.U./dL (0.2)
[2024-12-29 10:54] LABS: Urine Volume 10mL (spun)
[2024-12-29 10:56] LABS: Bacteria Urine None Seen; RBC Urine None Seen (0-5/HPF); Squamous Epithelial Cell Urine None Seen (0-5/HPF); WBC Urine None Seen (0-5/HPF)
[2024-12-29 10:57] LABS: Culture Indicated Urine Cult Not Indicated
[2024-12-29 11:01] LABS: Pregnancy Test Urine Negative (Negative)
[2024-12-29 12:06] LABS: COVID-19 CEPHEID 4-PLEX PCR Negative (Negative); Influenza A - CEPHEID Flu A NEGATIVE (NEGATIVE); Influenza B - CEPHEID Flu B NEGATIVE (NEGATIVE); Respiratory Syncytial Virus Negative (Negative)
--- NOTE | 2024-12-29 12:34 | PC.NURSE ---
Patient reports that there is pressure in her head, denies pain, cannot rate the level of discomfort felt, patient states that there is probably nothing you can do to help with the discomfort. This RN offered her ice or cool rag for he head and patient refused.
== END 2024-12-29 12:50 | disposition home or self-care (01) ==
PROVIDERS: Emergency Provider Emergency Medicine; PCP Family Medicine
DX: R42 Dizziness and giddiness (principal); R51.9 Headache, unspecified; R11.0 Nausea; R00.2 Palpitations; Z72.0 Tobacco use; F12.90 Cannabis use, unspecified, uncomplicated
CPT/HCPCS: 0241U; 36415; 70450; 71045; 80053; 80305; 81001; 81025; 82550; 83690; 83880; 84443; 84484; 85025; 93005; 96360; 99284

== ENCOUNTER 2024-12-30 15:39 | Emergency (ER) | payer OTHER, SELFPAY ==
[2024-12-30] VITALS (9 sets, daily range): BP systolic 94–142; BP diastolic 53–96; PULSE 64–92; RESP 20; TEMP 36.4; O2SAT 94–100
--- NOTE | 2024-12-30 20:54 | ED_ITS ---
HPI - Psych <Joe Alexander, DO - Last Filed: 12/31/24 06:30> General Chief Complaint: Psychiatric Symptoms Stated Complaint: Anxiety Time Seen by Provider: 12/30/24 20:54 Source: patient Mode of arrival: Ambulatory History of Present Illness HPI Narrative: 39-year-old female past medical history of anxiety depression comes into the ED from home for evaluation of multiple complaints. She states that over the past several months she has had difficulty sleeping, she feels like she keeps having in and out panic attacks, she states that she has been seen here previously for the same and has been told everything has been ?okay. However she states that today she is still having persistent symptoms, she states that she can not sleep she feels shaky she feels like her whole-body is tingling, she denies any actual headache visual disturbances chest pain fever chills nausea vomiting abdominal pain or any other GI/ symptoms time. But does state she feels palpitations occasionally. She states that she has an appointment with the primary care doctor tomorrow but states that she feels like she is ?going crazy and does not know what to do therefore presented to the emergency department for further evaluation treatment. Related Data Previous Rx's Medication Instructions Recorded sucralfate 100 mg/mL oral 10 ml PO QID PRN indigestion #420 02/21/20 suspension (Carafate) mL clonazepam 1 mg tablet See Rx Instructions .Route 01/25/21 .COMPLEX #14 tabs hydroxyzine HCl 10 mg tablet See Rx Instructions .Route 02/10/21 .COMPLEX #60 tabs trazodone 50 mg tablet See Rx Instructions PO BEDTIME PRN 03/18/21 sleep #60 tabs lidocaine 5 % topical ointment 1 applic topical DAILY PRN pain 01/30/22 #30 grams ibuprofen 800 mg tablet 800 mg PO TID PRN pain #20 tabs 07/29/22 aluminum-mag hydroxide-simethicone 10 ml PO QID PRN dyspepsia #3,000 08/04/23 200 mg-200 mg-20 mg/5 mL oral susp mL (Maalox Advanced) albuterol sulfate 90 mcg/actuation See Rx Instructions .Route 08/17/23 aerosol inhaler .COMPLEX #8.5 grams pantoprazole 40 mg tablet,delayed 40 mg PO DAILY #30 tabs 09/12/23 release oxycodone 5 mg tablet 5 mg PO Q6H PRN pain #14 tabs 10/29/23 benzonatate 200 mg capsule 200 mg PO BID PRN cough #28 caps 02/16/24 albuterol sulfate 90 mcg/actuation 2 puff PO Q6H PRN for wheezing 03/10/24 aerosol inhaler #6.7 grams escitalopram oxalate 10 mg tablet See Rx Instructions .Route 04/04/24 .COMPLEX #30 tabs Allergies Allergy/AdvReac Type Severity Reaction Status Date / Time Penicillins Allergy Severe Anaphylaxis Verified 12/30/24 15:40 buspirone AdvReac Intermediate Nausea, Verified 12/30/24 15:40 shakey, dizziness, headaches, numbness in hands Citalopram Analogues AdvReac Mild flat affect Verified 12/30/24 15:40 Review of Systems <Joe Alexander DO - Last Filed: 12/31/24 06:30> Review of Systems Narrative: General: Denies fever, chills, weight loss HEENT: Denies headache, eye drainage, eye irritation, head trauma, sore throat, voice change Cardiovascular: Positive palpitations Respiratory: Denies any shortness of breath, cough, wheeze, stridor GI/: Denies any abdominal pain, nausea, vomiting, diarrhea, bright red blood per rectum, melanotic stools, urinary frequency, urinary retention, dysuria, hematuria MSK: Denies any joint pain, muscle pains, swelling Skin: Denies any rashes, lesions, discoloration Neuro: Denies any headache, lightheadedness, dizziness, fainting, weakness Psych: Denies SI/HI, positive anxiety, decreased sleep, Patient History <Joe Alexander DO - Last Filed: 12/31/24 06:30> Medical History Medication side effects Hair loss Ataxia Hand weakness Tremor of both hands Paresthesia of both legs Leg weakness, bilateral Acute right-sided low back pain with bilateral sciatica Subungual hematoma Injury, thumb Well female exam with routine gynecological exam Insomnia disorder with non-sleep disorder mental comorbidity Segmental and somatic dysfunction of rib cage Crepitus of left TMJ on opening of jaw Guyon syndrome Stressful life event affecting family Caffeine abuse Generalized pruritus Musculoskeletal disorder involving masseter Body posture problem Segmental and somatic dysfunction of abdomen and other regions Sacral region somatic dysfunction Pelvic somatic dysfunction Lumbar region somatic dysfunction Thoracic region somatic dysfunction Cervical somatic dysfunction Cranial somatic dysfunction Chronic tension headaches Chronic back pain Chronic neck pain Generalized anxiety disorder with panic attacks History of live (~11/12/17) Chicken pox Elevated lipoprotein A level Panic disorder Family history of cardiovascular disease Family History Mother History of heart attack History of heart disease Hyperlipidemia Hypertension Fatty liver Brother Anxiety History of bipolar disorder History of heart disease Hyperlipidemia Mental health problem Fatty liver Sister Anxiety Depression Mental health problem Grandfather Hwang's syndrome Grandmother Cancer Social History Smoking Status: Current every day smoker Tobacco: How many years used: 20 quit status: considering quitting second hand exposure: Yes (my also smokes.) alcohol intake: former substance use type: marijuana tobacco type: cigarettes alcohol intake frequency: 0-2 drinks per day Exam <Joe Alexander DO - Last Filed: 12/31/24 06:30> Narrative Exam Narrative: General: Cooperative, well-developed, not in acute distress HEENT: Normocephalic, atraumatic, PERRLA, normal sclera, eyelids normal Neck: Active full range of motion, atraumatic Chest: Normal to inspection, negative crepitus, no overlying erythema ecchymosis Respiratory: Normal respiratory effort, not in acute respiratory distress, clear to auscultation bilaterally negative cough, wheeze, tachypnea, rhonchi, rales Cardiology: Regular rate rhythm negative gallop, murmur, rubs GI/: No tenderness to palpation, soft, non rigid, normal to inspection, exam deferred MSK: Full active range of motion in all 4 extremities, atraumatic, no tenderness to palpation of any bony prominences Skin: No rashes or lesions noted Neuro: Alert awake oriented x3, moves all 4 extremities spontaneously, cranial nerves intact, able to answer all questions appropriately follows commands appropriately Psych: Cooperative, negative suicidal or homicidal ideations, patient tearful, does appear anxious Initial Vital Signs Initial Vital Signs: Vital Signs Temperature 97.6 F 12/30/24 15:54 Pulse Rate 92 H 12/30/24 15:54 Respiratory Rate 20 12/30/24 15:54 Blood Pressure 142/96 H 12/30/24 15:54 Pulse Oximetry 100 12/30/24 15:54 Oxygen Delivery Method Room Air 12/30/24 15:54 <Eunice Manuel DO - Last Filed: 12/31/24 14:09> Initial Vital Signs Initial Vital Signs: Vital Signs Temperature 97.6 F 12/30/24 15:54 Pulse Rate 92 H 12/30/24 15:54 Respiratory Rate 20 12/30/24 15:54 Blood Pressure 142/96 H 12/30/24 15:54 Pulse Oximetry 100 12/30/24 15:54 Oxygen Delivery Method Room Air 12/30/24 15:54 Course <Joe Alexander DO - Last Filed: 12/31/24 06:30> Orders Ordered: ED Orders 12/31/24 06:41 Urine Drug Screen, Rapid Stat Discontinued Medications Acetaminophen (Acetaminophen 325 Mg Tablet) 650 mg PO NOW ONE Stop: 12/31/24 09:34 Last Admin: 12/31/24 09:45 Dose: 650 mg Documented By: ALEJANDRA Sodium Chloride (Normal Saline 0.9%) 1,000 mls @ 1,000 mls/hr IV BOLUS ONE Stop: 12/30/24 22:13 Last Infusion: 12/30/24 22:57 Dose: Infused Documented By: Admin: 12/30/24 21:40 Dose: 1,000 mls/hr Documented By: JAIDA Lorazepam (Lorazepam 2 Mg/Ml Inj) 1 mg IV NOW ONE Stop: 12/30/24 21:15 Last Admin: 12/30/24 21:40 Dose: 1 mg Documented By: JAIDA Lorazepam (Lorazepam 2 Mg/Ml Inj) 1 mg IV NOW ONE Stop: 12/31/24 01:31 Last Admin: 12/31/24 01:35 Dose: 1 mg Documented By: JAIDA Vital Signs Vital signs: Vital Signs - 8 hr 12/31/24 06:41 12/31/24 07:00 12/31/24 07:30 Pulse Rate 62 Respiratory Rate Blood Pressure 132/61 110/57 L 104/57 L Pulse Oximetry 95 12/31/24 08:00 12/31/24 08:30 12/31/24 09:00 Pulse Rate Respiratory Rate Blood Pressure 119/67 127/71 119/64 Pulse Oximetry 12/31/24 09:30 12/31/24 10:00 12/31/24 10:30 Pulse Rate Respiratory Rate Blood Pressure 120/69 95/51 L 93/55 L Pulse Oximetry 12/31/24 12:45 Pulse Rate 78 Respiratory Rate 18 Blood Pressure Pulse Oximetry 98 <Eunice Manuel DO - Last Filed: 12/31/24 14:09> Orders Ordered: ED Orders 12/31/24 06:41 Urine Drug Screen, Rapid Stat Discontinued Medications Acetaminophen (Acetaminophen 325 Mg Tablet) 650 mg PO NOW ONE Stop: 12/31/24 09:34 Last Admin: 12/31/24 09:45 Dose: 650 mg Documented By: ALEJANDRA Sodium Chloride (Normal Saline 0.9%) 1,000 mls @ 1,000 mls/hr IV BOLUS ONE Stop: 12/30/24 22:13 Last Infusion: 12/30/24 22:57 Dose: Infused Documented By: Admin: 12/30/24 21:40 Dose: 1,000 mls/hr Documented By: JAIDA Lorazepam (Lorazepam 2 Mg/Ml Inj) 1 mg IV NOW ONE Stop: 12/30/24 21:15 Last Admin: 12/30/24 21:40 Dose: 1 mg Documented By: JAIDA Lorazepam (Lorazepam 2 Mg/Ml Inj) 1 mg IV NOW ONE Stop: 12/31/24 01:31 Last Admin: 12/31/24 01:35 Dose: 1 mg Documented By: JAIDA Vital Signs Vital signs: Vital Signs - 8 hr 12/31/24 06:41 12/31/24 07:00 12/31/24 07:30 Pulse Rate 62 Respiratory Rate Blood Pressure 132/61 110/57 L 104/57 L Pulse Oximetry 95 12/31/24 08:00 12/31/24 08:30 12/31/24 09:00 Pulse Rate Respiratory Rate Blood Pressure 119/67 127/71 119/64 Pulse Oximetry 12/31/24 09:30 12/31/24 10:00 12/31/24 10:30 Pulse Rate Respiratory Rate Blood Pressure 120/69 95/51 L 93/55 L Pulse Oximetry 12/31/24 12:45 Pulse Rate 78 Respiratory Rate 18 Blood Pressure Pulse Oximetry 98 MDM - Psych <Joe Alexander DO - Last Filed: 12/31/24 06:30> Differential Diagnosis Differential diagnosis: Likely acute anxiety and other (ACS, pneumonia, electrolyte abnormality, COVID, flu) Lab Data 12/30/24 21:45 12/30/24 21:45 Labs: Lab Results 12/30/24 12/31/24 Range/Units 21:45 06:41 WBC 9.9 (4.5-11.0) X10^3/uL RBC 4.19 (4.0-5.2) X10^6/uL Hgb 13.4 (12.0-16.0) g/dL Hct 39.1 (36-46) % MCV 93.2 (80-100) fL MCH 31.9 (26-34) PG MCHC 34.3 (30-36) % RDW 12.6 (11.6-14.8) % Plt Count 220 (150-400) X10^3/uL Neut % (Auto) 63.3 (50-75) % Lymph % (Auto) 29.3 (25-40) % [place] % (Auto) 6.5 (3-14) % Eos % (Auto) 0.5 L (2-4) % Baso % (Auto) 0.4 (0-2) % Neut # (Auto) 6300 (7605-1341) /uL Lymph # (Auto) 2900 (4623-2051) /uL [place] # (Auto) 700 (0-900) /uL Eos # (Auto) 100 (0-450) /uL Baso # (Auto) 0 (0-100) /uL Sodium 138 (137-145) mmol/L Potassium 3.7 (3.4-5.1) mmol/L Chloride 107 (98-107) mmol/L Carbon Dioxide 22 (22-32) mmol/L BUN 13 (7-17) mg/dL Creatinine 0.65 (0.52-1.04) mg/dL Estimated GFR > 60 (>60) mL/min BUN/Creatinine Ratio 20.0 (6-22) Glucose 99 (70-100) mg/dL Calcium 8.9 (8.4-10.2) mg/dL Magnesium 1.8 (1.6-2.3) mg/dL Total Bilirubin 0.5 (0.2-1.3) mg/dL AST 23 (14-36) IU/L ALT 19 (<35) IU/L Alkaline Phosphatase 64 (38-126) U/L Total Protein 6.4 (6.3-8.2) g/dL Albumin 4.0 (3.5-5.0) g/dL Globulin 2.4 (1.7-4.1) g/dL Albumin/Globulin Ratio 1.7 (1.0-2.8) Lipase 83 (23-300) U/L TSH 1.34 (0.47-4.68) uIU/mL U Opiates 300ng/mL cut Negative (Negative) Ur Oxycodone Screen Negative (Negative) Urine Methadone Screen Negative (Negative) Ur Barbiturates Screen Negative (Negative) U Tricyclic Antidepress Negative (Negative) Ur Phencyclidine Scrn Negative (Negative) Ur Amphetamines Screen Negative (Negative) U Methamphetamines Scrn Negative (Negative) Ur MDMA Scrn (Ecstasy) Negative (Negative) U Benzodiazepines Scrn Positive H (Negative) Urine Cocaine Screen Negative (Negative) U Marijuana (THC) Screen Positive H (Negative) Urine pH Normal (Normal) Urine Specific [place] Normal (Normal) Ethyl Alcohol < 10 ( - 10) mg/dL Ur Creatinine Normal (Normal) Point of Care Testing Test Results Negative Urine Dip Bedside Urine Glucose Negative Bedside Urine Bilirubin - Negative Bedside Urine Ketone +/- 5 Urine Specific [place] 1.025 Bedside Urine Occult Blood - Negative Bedside Urine pH 6.0 Bedside Urine Protein - Negative Bedside Urine Urobilinogen - Negative Bedside Urine Nitrite - Negative Bedside Urine Leukocytes - Negative Esterase Imaging Data Chest x-ray: Radiologist's Impression: [address] [address] XRay Report Signed Patient: Brianna Madden MR#: [id number] : 1985 Acct:[id number] Age/Sex: 39 / F Date of Service: 12/30/24 Loc: ED Accession Number: [id number] Procedure: XR chest 1V Ordering Provider: Joe Alexander D.O. PROCEDURE: XR CHEST 1V INDICATIONS: palpitations TECHNIQUE: One view of the chest was acquired. COMPARISON: [facility], , XR CHEST 1V, 12/29/2024, 9:31. FINDINGS: Surgical changes and devices: None. Lungs and pleura: Lungs are clear. No pleural effusions or pneumothorax. Mediastinum: Mediastinal contours appear normal. Heart size is normal. Bones and chest wall: No suspicious bony lesions. Overlying soft tissues appear unremarkable. IMPRESSION: No acute cardiopulmonary abnormality is seen. ECG Data Interpretation: EKG interpreted ED physician sinus 67 beats per minute QTC [address] changes no STEMI MDM Narrative Medical decision making narrative: 39-year-old female with a past medical history of anxiety depression coming in for multiple complaints, stating that she feels like she is ?going crazy states that she has been having intermittent symptoms of panic attacks that she has had in the past but this has been lasting longer than normal. She states she has been here multiple times for similar symptoms but has been told everything was ?normal she states that she has been unable to sleep and she feels shaky/tingling sensation over her whole-body. Patient had repeat lab work imaging EKG urinalysis performed here, EKG nonischemic in nature, lab work unremarkable, patient already previously had negative viral panel performed on 12/29/2024. We will attempt to give Ativan to help with the patient's symptoms. 0131: Patient was re-evaluated, she states that she was feeling a lot better after the medication and sleep, however after discussing possibly going home patient has started to have a reoccurrence of her symptoms, patient started hyperventilating stating that she has having a panic attack, patient was able to be redirected, however she states that she does not want to go home and would like to talk to social work to see if they can offer her any additional resources or help given her recurrence/persistence of her anxiety/panic attacks. Additional Ativan ordered for her symptoms 0700: Patient was signed out to Dr. Manuel, patient pending social work consult for her recurrent panic attacks/anxiety attacks <Eunice Manuel, DO - Last Filed: 12/31/24 14:09> Lab Data Labs: Lab Results 12/30/24 12/31/24 Range/Units 21:45 06:41 WBC 9.9 (4.5-11.0) X10^3/uL RBC 4.19 (4.0-5.2) X10^6/uL Hgb 13.4 (12.0-16.0) g/dL Hct 39.1 (36-46) % MCV 93.2 (80-100) fL MCH 31.9 (26-34) PG MCHC 34.3 (30-36) % RDW 12.6 (11.6-14.8) % Plt Count 220 (150-400) X10^3/uL Neut % (Auto) 63.3 (50-75) % Lymph % (Auto) 29.3 (25-40) % Pickett % (Auto) 6.5 (3-14) % Eos % (Auto) 0.5 L (2-4) % Baso % (Auto) 0.4 (0-2) % Neut # (Auto) 6300 (4972-1856) /uL Lymph # (Auto) 2900 (9130-1046) /uL [place] # (Auto) 700 (0-900) /uL Eos # (Auto) 100 (0-450) /uL Baso # (Auto) 0 (0-100) /uL Sodium 138 (137-145) mmol/L Potassium 3.7 (3.4-5.1) mmol/L Chloride 107 (98-107) mmol/L Carbon Dioxide 22 (22-32) mmol/L BUN 13 (7-17) mg/dL Creatinine 0.65 (0.52-1.04) mg/dL Estimated GFR > 60 (>60) mL/min BUN/Creatinine Ratio 20.0 (6-22) Glucose 99 (70-100) mg/dL Calcium 8.9 (8.4-10.2) mg/dL Magnesium 1.8 (1.6-2.3) mg/dL Total Bilirubin 0.5 (0.2-1.3) mg/dL AST 23 (14-36) IU/L ALT 19 (<35) IU/L Alkaline Phosphatase 64 (38-126) U/L Total Protein 6.4 (6.3-8.2) g/dL Albumin 4.0 (3.5-5.0) g/dL Globulin 2.4 (1.7-4.1) g/dL Albumin/Globulin Ratio 1.7 (1.0-2.8) Lipase 83 (23-300) U/L TSH 1.34 (0.47-4.68) uIU/mL U Opiates 300ng/mL cut Negative (Negative) Ur Oxycodone Screen Negative (Negative) Urine Methadone Screen Negative (Negative) Ur Barbiturates Screen Negative (Negative) U Tricyclic Antidepress Negative (Negative) Ur Phencyclidine Scrn Negative (Negative) Ur Amphetamines Screen Negative (Negative) U Methamphetamines Scrn Negative (Negative) Ur MDMA Scrn (Ecstasy) Negative (Negative) U Benzodiazepines Scrn Positive H (Negative) Urine Cocaine Screen Negative (Negative) U Marijuana (THC) Screen Positive H (Negative) Urine pH Normal (Normal) Urine Specific [place] Normal (Normal) Ethyl Alcohol < 10 ( - 10) mg/dL Ur Creatinine Normal (Normal) Point of Care Testing Test Results Negative Urine Dip Bedside Urine Glucose Negative Bedside Urine Bilirubin - Negative Bedside Urine Ketone +/- 5 Urine Specific [place] 1.025 Bedside Urine Occult Blood - Negative Bedside Urine pH 6.0 Bedside Urine Protein - Negative Bedside Urine Urobilinogen - Negative Bedside Urine Nitrite - Negative Bedside Urine Leukocytes - Negative Esterase MDM Narrative Medical decision making narrative: 39-year-old female with a past medical history of anxiety depression coming in for multiple complaints, stating that she feels like she is ?going crazy states that she has been having intermittent symptoms of panic attacks that she has had in the past but this has been lasting longer than normal. She states she has been here multiple times for similar symptoms but has been told everything was ?normal she states that she has been unable to sleep and she feels shaky/tingling sensation over her whole-body. Patient had repeat lab work imaging EKG urinalysis performed here, EKG nonischemic in nature, lab work unremarkable, patient already previously had negative viral panel performed on 12/29/2024. We will attempt to give Ativan to help with the patient's symptoms. 0131: Patient was re-evaluated, she states that she was feeling a lot better after the medication and sleep, however after discussing possibly going home patient has started to have a reoccurrence of her symptoms, patient started hyperventilating stating that she has having a panic attack, patient was able to be redirected, however she states that she does not want to go home and would like to talk to social work to see if they can offer her any additional resources or help given her recurrence/persistence of her anxiety/panic attacks. Additional Ativan ordered for her symptoms 0700: Patient was signed out to Dr. Manuel, patient pending social work consult for her recurrent panic attacks/anxiety attacks [id number] Dr. Manuel patient signed out to me as seen evaluated patient. She was sleeping arousable but very tired. Voluntary agreeable to go to mental health facility for stability. She has had multiple ED visits for anxiety. Patient no longer wanting inpatient treatment she was not suicidal not homicidal. 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 Has been at bedside agrees with plan. Does not meet involuntary criteria Discharge Plan Departure Patient Disposition: Home Clinical Impression: Anxiety disorder with panic attacks Instructions: DI for Anxiety -- Adult Activity Restrictions/Additional Instructions: *You have been diagnosed with anxiety *What to do: At this time I recommend that you have strong outpatient support talk to your primary care *Continue to take medications as directed *Follow up with your primary care provider in 2-3 days or call [phone] *Return to ER if you should have any new, worsening or concerning symptoms Prescriptions: No Action benzonatate 200 mg capsule 200 mg PO BID PRN (Reason: cough) Qty: 28 0RF clonazepam 1 mg tablet See Rx Instructions .ROUTE .COMPLEX Qty: 14 0RF Dose Instruction: TAKE 1 TABLET BY MOUTH DAILY Rx Instructions: TAKE 1 TABLET BY MOUTH DAILY hydroxyzine HCl 10 mg tablet See Rx Instructions .ROUTE .COMPLEX Qty: 60 0RF Dose Instruction: TAKE 1 TABLET BY MOUTH THREE TIMES DAILY NEEDED FOR ANXIETY Rx Instructions: TAKE 1 TABLET BY MOUTH THREE TIMES DAILY NEEDED FOR ANXIETY albuterol sulfate 90 mcg/actuation HFA aerosol inhaler See Rx Instructions .ROUTE .COMPLEX Qty: 8.5 1RF Dose Instruction: INHALE 2 PUFFS INTO THE LUNGS EVERY 4 TO 6 HOURS NEEDED FOR BRONCHOSPASM Rx Instructions: INHALE 2 PUFFS INTO THE LUNGS EVERY 4 TO 6 HOURS NEEDED FOR BRONCHOSPASM pantoprazole 40 mg tablet,delayed release (DR/EC) 40 mg PO DAILY Qty: 30 0RF albuterol sulfate 90 mcg/actuation HFA aerosol inhaler 2 puff PO Q6H PRN (Reason: for wheezing) Qty: 6.7 5RF escitalopram oxalate 10 mg tablet See Rx Instructions .ROUTE .COMPLEX Qty: 30 0RF Dose Instruction: TAKE 1 TABLET BY MOUTH DAILY Rx Instructions: TAKE 1 TABLET BY MOUTH DAILY/ PT WILL NEED TO BE SEEN BEFORE NEXT RENEWAL WITH PCP 4/29/24 trazodone 50 mg tablet See Rx Instructions PO BEDTIME PRN (Reason: sleep) Qty: 60 0RF Rx Instructions: bedtime PRN; 1-2 tabs PO lidocaine 5 % ointment 1 applic topical DAILY PRN (Reason: pain) Qty: 30 1RF ibuprofen 800 mg tablet 800 mg PO TID PRN (Reason: pain) Qty: 20 0RF alum-mag hydroxide-simeth [Maalox Advanced] 200-200-20 mg/5 mL suspension 10 ml PO QID PRN (Reason: dyspepsia) Qty: 3000 0RF Rx Instructions: administer between meals and at bedtime as needed oxycodone 5 mg tablet 5 mg PO Q6H PRN (Reason: pain) Qty: 14 0RF sucralfate [Carafate] 100 mg/mL suspension 10 ml PO QID PRN (Reason: indigestion ) Qty: 420 0RF Rx Instructions: swish in mouth and swallow; use after food/drink Referrals: Juan Finley DO [Primary Care Provider] - Stand Alone Forms: Patient Portal/API/Survey
--- NOTE | 2024-12-30 21:14 | EKG_ITS ---
[address] [address] [place] [address] Test Date: 2024-12-30 Pat Name: Brianna Madden Department: [facility] Room: Gender: Female Operating Room Technologist: : 1985 Requested By: Order Number: [id number] Reading MD: Joe Gonzales Measurements Intervals [place] Rate: 67 P: 112 MD: 166 QRS: 175 QRSD: 86 T: 169 QT: 430 QTc: 454 Interpretive Statements Suspect arm lead reversal, interpretation assumes no reversal Normal sinus rhythm Right axis deviation Electronically Signed On 12-31-2024 18:42:49 PDT by Joe Gonzales
--- NOTE | 2024-12-30 21:14 | DI.RAD.S_ITS ---
PROCEDURE: XR CHEST 1V INDICATIONS: palpitations TECHNIQUE: One view of the chest was acquired. COMPARISON: [facility], CR, XR CHEST 1V, 12/29/2024, 9:31. FINDINGS: Surgical changes and devices: None. Lungs and pleura: Lungs are clear. No pleural effusions or pneumothorax. Mediastinum: Mediastinal contours appear normal. Heart size is normal. Bones and chest wall: No suspicious bony lesions. Overlying soft tissues appear unremarkable. IMPRESSION: No acute cardiopulmonary abnormality is seen. Dictated by: Carmelina Quintanilla M.D. on 12/30/2024 at 21:55 Approved by: Carmelina Quintanilla M.D. on 12/30/2024 at 21:55
[2024-12-30] MEDS: SODIUM CHLORIDE 0.9% 1,000 ML 1000 ML IV (21:40)
[2024-12-30] MEDS: LORazepam 2 MG/ML INJ 1 MG IV (21:40)
[2024-12-30 21:56] LABS: Add Manual Diff / Slide Review NO; Basophils Absolute Auto 0 /uL (0-100); Basophils Percent Auto 0.4 % (0-2); Eosinophils Absolute Auto 100 /uL (0-450); Eosinophils Percent Auto 0.5 % (2-4); Hematocrit 39.1 % (36-46); Hemoglobin 13.4 g/dL (12.0-16.0); Lymphocytes Absolute Auto 2900 /uL (1100-4500); Lymphocytes Percent Auto 29.3 % (25-40); Mean Corpuscular HGB Conc 34.3 % (30-36); Mean Corpuscular Hemoglobin 31.9 PG (26-34); Mean Corpuscular Volume 93.2 fL (80-100); Monocytes Absolute Auto 700 /uL (0-900); Monocytes Percent Auto 6.5 % (3-14); Neutrophils Absolute Auto 6300 /uL (1500-7000); Neutrophils Percent Auto 63.3 % (50-75); Platelet Count 220 X10^3/uL (150-400); Red Blood Cell Count 4.19 X10^6/uL (4.0-5.2); Red Cell Distribution Width 12.6 % (11.6-14.8); White Blood Cell Count 9.9 X10^3/uL (4.5-11.0)
[2024-12-30 22:07] LABS: Alanine Aminotransferase 19 IU/L (<35); Albumin Globulin Ratio 1.7 (1.0-2.8); Alkaline Phosphatase 64 U/L (38-126); Aspartate Aminotransferase 23 IU/L (14-36); Bilirubin Total 0.5 mg/dL (0.2-1.3); Blood Urea Nitrogen 13 mg/dL (7-17); Calcium 8.9 mg/dL (8.4-10.2); Carbon Dioxide 22 mmol/L (22-32); Chloride 107 mmol/L (98-107); Estimated Glomerular Filt Rate > 60 mL/min (>60); Ethanol (ETOH) < 10 mg/dL; Globulin 2.4 g/dL (1.7-4.1); Glucose 99 mg/dL (70-100); HEMOLYSIS < 15 (0-50); Potassium 3.7 mmol/L (3.4-5.1); Sodium 138 mmol/L (137-145); Total Protein 6.4 g/dL (6.3-8.2)
[2024-12-30 22:08] LABS: Lipase 83 U/L (23-300); Magnesium 1.8 mg/dL (1.6-2.3)
--- NOTE | 2024-12-30 22:11 | PC.NURSE ---
Pt declined respiratory panel d/t having test performed during yesterday's visit. Confirmed negative panel by this RN.
[2024-12-30 22:38] LABS: TSH w/ Reflex to FT4 1.34 uIU/mL (0.47-4.68)
[2024-12-31] VITALS (23 sets, daily range): BP systolic 93–150; BP diastolic 51–84; PULSE 61–78; RESP 18; O2SAT 92–98
[2024-12-31] MEDS: LORazepam 2 MG/ML INJ 1 MG IV (01:35)
[2024-12-31 06:54] LABS: UR Morphine/Opiate cutoff 300 Negative (Negative); Ur Creatinine Normal (Normal); Ur Specific Gravity Normal (Normal); Urine Amphetamines Negative (Negative); Urine Barbiturates Negative (Negative); Urine Benzodiazepines Positive (Negative); Urine Cocaine Negative (Negative); Urine MDMA Negative (Negative); Urine Methadone Negative (Negative); Urine Methamphetamines Negative (Negative); Urine Oxycodone Negative (Negative); Urine Phencyclidine Negative (Negative); Urine Tetrahydrocannabinol Positive (Negative); Urine Tricyclic Antidepressant Negative (Negative); Urine pH Normal (Normal)
--- NOTE | 2024-12-31 08:09 | PC.NURSE ---
Pt crying, asked where was her , states she wants to speak to her . Pt's cell phone in her lap. Advised pt she could call her . Pt now on cell phone speaking to .
--- NOTE | 2024-12-31 08:53 | PC.NURSE ---
Patient seeking voluntary treatment Packets sent to 0831: [facility] , facesheet and doctor notes 0840: [facility], facesheet and doctor notes. They will still need [employer] consult to be sent when done. 0848: [facility], facesheet and doctor notes
[2024-12-31] MEDS: ACETAMINOPHEN 325 MG TABLET 650 MG PO (09:45)
--- NOTE | 2024-12-31 12:09 | CM.SWNOTE ---
Addendum entered by Akua Angela 12/31/24 12:30: LAYOUT FORMER calls facilities and cancels patient's voluntary referral. Akua Angela, [facility] Original Note: ED LAYOUT FORMER Assessment Note Patient is 39 y/o female who presents to ED via EMS due to concern for worsening anxiety. This is patient's 3rd ED presentation in recent days regarding this concern. There was some report of patient interested in voluntary BH inpatient hospitalization, MANAGER MONITORING [facility] [place] [facility] morning and faxes clincials for review. Patient declines nasal swab for covid test and reports this morning that she is not interested in BH placement. Patient's PCP is Dr. Finley, patient has appt today with JACEY Cheung today at 1400. Patient has [employer] insurance. LAYOUT FORMER enters room to meet with patient, patient presents as A/Ox4. Present in room is patient's spouse, patient gives consent for him to be present. Patient presents as tearful, shaking at times, coherent and anxious. Patient has been boarding in the ED for 19 hours. Patient states that she was able to sleep here. Patient endorses concern for sleep at home and concern for disinterest in food. Patient and spouse endorses that patient was sick with a chest cold a few weeks ago, was not sleeping well and there have also been some family stressors with a family member passing away in [place]. Patient endorses similar anxiety episodes and when her mother . Patient denies SI and HI. Patient endorses that she has been in her head about her symptoms and then she starts experiencing physical symptoms and begins to worry that something is wrong. Patient endorses she is prescribed lexapro, patient states she has good supports at home and with her doctor. Patient endorses she does not have therapist but therapy has helped in the past. Patient presents with anxiety about feeling stuck in the ED, patient states she was fatigued from ativan when asked about voluntary BH placement, patient states her preference is to go home and go to PCP appt. Patient states that she feels like she has good supports at home. LAYOUT FORMER discusses that if symptoms worsen and patient feels the need to return to the ED again then inpatient placement will be a part of the discussion. LAYOUT FORMER provides patient with crisis contacts and lists of providers that take her insurance. Plan: patient to d/c to home upon medical clearance with spouse, patient to f/u with PCP appt today, patient to f/u with resources provided. Akua Angela, [employer]
== END 2024-12-31 13:00 | disposition home or self-care (01) ==
PROVIDERS: Student in an Organized Health Care Education/Training Program; Emergency Provider Emergency Medicine; PCP Family Medicine
DX: F41.0 Panic disorder [episodic paroxysmal anxiety] (principal); F41.9 Anxiety disorder, unspecified; R00.2 Palpitations
CPT/HCPCS: 36415; 71045; 80053; 80305; 80320; 81003; 81025; 83690; 83735; 84443; 85025; 93005; 96361; 96374; 96376; 99284; J2060

== ENCOUNTER → 2025-05-08 09:21 | Outpatient (CLI) | payer OTHER, SELFPAY ==
[2025-05-08 10:06] LABS: Add Manual Diff / Slide Review NO; Hematocrit 40.7 % (36-46); Hemoglobin 14.1 g/dL (12.0-16.0); Lymphocytes Absolute Auto 2400 /uL (1100-4500); Mean Corpuscular HGB Conc 34.6 % (30-36); Mean Corpuscular Hemoglobin 32.8 PG (26-34); Mean Corpuscular Volume 94.9 fL (80-100); Platelet Count 205 X10^3/uL (150-400)
[2025-05-08 10:29] LABS: Natera Collection Specimen Collected
[2025-05-08 10:37] LABS: Appearance Urine UA CLEAR; Bilirubin Urine UA NEGATIVE (NEGATIVE); Color Urine UA YELLOW; Glucose Urine UA NEGATIVE (Negative); Ketones Urine UA NEGATIVE (NEGATIVE); Leukocyte Esterase Urine UA NEGATIVE (NEGATIVE); Nitrite Urine UA NEGATIVE (Negative); Occult Blood Urine UA NEGATIVE (Negative); Protein Urine UA NEGATIVE (Negative); Specific Gravity Urine UA 1.010 (1.000-1.035); Urobilinogen Urine UA 0.2 E.U./dL (0.2)
[2025-05-08 10:44] LABS: pH Urine UA 6.0 (4.5-8.0)
[2025-05-08 11:02] LABS: Hepatitis B Surface Antigen NEGATIVE s/c (NEGATIVE)
[2025-05-08 11:17] LABS: HIV 1 & 2 Ab/Ag 4th Gen Combo NEGATIVE (NEGATIVE); Hep C Virus Ab w/Reflex Quant NEGATIVE s/c (NEGATIVE)
== END ==
PROVIDERS: PCP Family Medicine; Referring Provider Family Medicine; Visit Provider Family Medicine
DX: O09.511 Supervision of elderly primigravida, first trimester (principal); O09.899 Supervision of other high risk pregnancies, unspecified trimester
CPT/HCPCS: 80055; 81003; 86787; 86803; 86850; 86900; 86901; 87086; 87389

== ENCOUNTER → 2025-07-16 12:07 | Outpatient (CLI) | payer OTHER, SELFPAY ==
--- NOTE | 2025-07-16 12:08 | DI.US.S_ITS ---
PROCEDURE: US OB >= 14 WEEKS FETUS INDICATIONS: anatomy OUTSIDE/PRIOR DATING DATA: Last menstrual period (LMP): 02/13/2025 LMP-based estimated date of delivery (RANDAL): 11/20/2025. First dating scan (date and location): 05/13/2025. Estimated date of delivery (RANDAL) from first dating scan: 11/23/2025 Working RANDAL is 11/29/2025. TECHNIQUE: Real-time scanning was performed of the fetus, with image documentation and biometric measurements. Endovaginal scanning: No COMPARISON: None. FINDINGS: General: A single living intrauterine gestation is present. Presentation: Vertex. Placenta: Placental position is left lateral , without previa. Prominent placental lakes. Amniotic fluid index: 14.5 cm, normal range is 5-24 cm. Single deepest vertical pocket is 5.3 cm. heart rate: 149 beats per minute. Maternal cervical canal: 5.1 cm long. Normal lower limit is 2.5 cm. Possible maternal anterior intramural fibroid measuring 3.4 cm. biometrics: Biparietal diameter: 21 weeks 5 days Head circumference: 21 weeks 3 days Abdominal circumference: 21 weeks 1 day Femur length: 20 weeks 5 days Clinically estimated gestational age: 20 weeks 4 days Composite gestational age from present scan: 21 weeks 2 days Estimated weight and percentile: 68 percentile Anatomic survey: Neuro: Ventricles are non-dilated at less than 10 mm. Cisterna magna is normal at 3-11 mm. Cerebellum is normal in size and morphology. Nuchal skin fold: Normal at less than 6 mm between 14-21 weeks gestational age. Face: Nose and lips, facial profile are normal. Spine: No evidence for spina bifida. Heart: 4-chambered heart is present, with normal ventricular outflow tracts. Diaphragm: Diaphragm is intact. Stomach: Left-sided stomach is present. Kidneys: No hydronephrosis. Normal is less than 5 mm in 2nd trimester, less than 7 mm in 3rd trimester. Cord: 3-vessel cord has orthotopic insertion. Placental cord insertion site not well seen. Bladder: Normal in size. Extremities: All 4 extremities identified. IMPRESSION: 1. Single living IUP redemonstrated and interval growth is within normal limits. 2. Placental cord insertion not well seen; otherwise normal anatomic survey. Short-term follow-up recommended. 3. Possible 3.4 cm right anterior maternal intramural fibroid. Attention on follow-up. We strive to produce accurate, complete, and clear reports of imaging services. To assist us in improving patient care, this report was composed using standard report templates and voice recognition software. Therefore, it may contain abnormal punctuation, insertions and/or omissions. Occasional wrong-word or sound-alike substitutions may occur. Though we review the report and make efforts to correct it, we do recommend that the report be read carefully in proper context to recognize any text inaccuracies. Dictated by: Kike HESS Interpreted: Devyn Grimm MD on 07/16/2025 at 13:58 Transcribed by: SANDOVAL on 07/16/2025 at 14:05 Approved by: Devyn Grimm M.D. on 07/16/2025 at 15:18
== END ==
PROVIDERS: PCP Family Medicine; Referring Provider Family Medicine; Visit Provider Family Medicine
DX: O09.899 Supervision of other high risk pregnancies, unspecified trimester (principal); Z3A.20 20 weeks gestation of pregnancy
CPT/HCPCS: 76811

== ENCOUNTER → 2025-07-30 11:06 | Outpatient (CLI) | payer OTHER, SELFPAY ==
--- NOTE | 2025-07-30 11:06 | DI.US.S_ITS ---
PROCEDURE: US OB FOLLOW UP INDICATIONS: ob f/u TECHNIQUE: Real-time scanning was performed of the fetus, with image documentation and biometric measurements. Calculations are based on the working RANDAL of 11/29/2024. COMPARISON: None. FINDINGS: General: A single living intrauterine gestation is present. Presentation: Vertex. Placenta: Placental position is anterior , without previa. Amniotic fluid index: 15.0 cm, normal range is 5-24 cm. Single deepest vertical pocket is 5.4 cm. heart rate: 139 beats per minute. Maternal cervical canal: 0.5 cm long. Normal lower limit is 2.5 cm. Clinically estimated gestational age: 22 week 4 day Previously noted fibroid is no longer visualized. Umbilical cord placental insertion is noted from the anterior membranes just inferior to the placental edge IMPRESSION: Single live intrauterine consistent with 22 week 4 day gestation. Probable placental velamentous cord insertion Approved by: Bill Ruth M.D. on 07/30/2025 at 18:14
== END ==
LOC: US 11:06
PROVIDERS: PCP Family Medicine; Referring Provider Family Medicine; Visit Provider Family Medicine
DX: O09.892 Supervision of other high risk pregnancies, second trimester (principal); Z3A.22 22 weeks gestation of pregnancy
CPT/HCPCS: 76816

== ENCOUNTER → 2025-09-04 09:02 | Outpatient (CLI) | payer OTHER, SELFPAY ==
[2025-09-04 12:10] LABS: Add Manual Diff / Slide Review NO; Hematocrit 33.1 % (36-46); Hemoglobin 11.5 g/dL (12.0-16.0); Lymphocytes Absolute Auto 1600 /uL (1100-4500); Mean Corpuscular HGB Conc 34.6 % (30-36); Mean Corpuscular Hemoglobin 32.6 PG (26-34); Mean Corpuscular Volume 94.3 fL (80-100); Platelet Count 198 X10^3/uL (150-400)
[2025-09-04 12:40] LABS: GTT (PREG) 1 Hour PP 50gm Dose 133 mg/dL (76-139)
== END ==
PROVIDERS: PCP Family Medicine; Referring Provider Family Medicine; Visit Provider Family Medicine
DX: O09.899 Supervision of other high risk pregnancies, unspecified trimester (principal)
CPT/HCPCS: 82950; 85025; 86850